=== PATIENT | male | born 1950 | race African-American/Black ===

== ENCOUNTER 2018-12-15 10:34 | Inpatient (IN) | payer OTHER ==
[~2018-12-15] VITALS: Ht 182.9 cm; Wt 86.2 kg
[2018-12-15 11:15] LABS: APPEARANCE,URINE SLIGHTLY CLOUDY; BILIRUBIN, URINE NEGATIVE (NEGATIVE); COLOR,URINE PALE YELLOW; GLUCOSE, URINE (UA) NEGATIVE (NEGATIVE); KETONES,URINE NEGATIVE (NEGATIVE); LEUKOCYTE ESTERASE ,URINE 3+ (NEGATIVE); NITRITE,URINE NEGATIVE (NEGATIVE); PH,URINE 6 (4.5-8.0); PROTEIN,URINE 3+ (NEGATIVE); UROBILINOGEN,URINE NORMAL MG/DL (0.0-1.0)
[2018-12-15 11:18] LABS: EOSINOPHILS % (AUTO) 1.8 % (0.0-3.0); HEMATOCRIT 35.5 % (42.0-52.0); HEMOGLOBIN 11.3 G/DL (14.2-18.0); LYMPHOCYTES % (AUTO) 11.2 % (20.0-45.0); MEAN CORPUSCULAR VOLUME 85 FL (80-99); MONOCYTES % (AUTO) 7.8 % (1.0-10.0); NEUTROPHILS % (AUTO) 78.1 % (45.0-75.0); PLATELET COUNT 375 K/UL (150-450); RED BLOOD COUNT 4.21 M/UL (4.70-6.10); RED CELL DISTRIBUTION WIDTH 15.5 % (11.6-14.8); WHITE BLOOD COUNT 11.4 K/UL (4.8-10.8)
[2018-12-15 11:26] LABS: ANION GAP 10 mmol/L (5-15); BLOOD UREA NITROGEN 15 mg/dL (7-18); CARBON DIOXIDE 27 MMOL/L (21-32); CHLORIDE 104 MMOL/L (98-107); CREATININE 1.3 MG/DL (0.55-1.30); POTASSIUM 3.2 MMOL/L (3.5-5.1); SODIUM 141 MMOL/L (136-145)
--- NOTE | 2018-12-15 11:30 | NUR ---
ED Nurse Note:pt. was BIBA from SNF with abd pain and rectal bleed, pt. is A/Ox4 , temp 100.8 rectal, he came with F/C, has small sacral decub, right BKA, blood blood cultures and urine was sent to labs, pt. placed on brazing machine setter, IV fluids given, will continue monitor
[2018-12-15 11:35] LABS: ALANINE AMINOTRANSFERASE 12 U/L (12-78); ALBUMIN 2.6 G/DL (3.4-5.0); ALBUMIN/GLOBULIN RATIO 0.5 (1.0-2.7); ALKALINE PHOSPHATASE 127 U/L (46-116); ASPARTATE AMINO TRANSFERASE 14 U/L (15-37); BILIRUBIN,TOTAL 0.4 MG/DL (0.2-1.0)
[2018-12-15] MEDS ORDERED: CATAPRES0.1 MG ORAL (11:35)
[2018-12-15] MEDS ORDERED: METOPROLOL TART50 M1 ORAL (11:35)
[2018-12-15] MEDS ORDERED: HUMALOG100 UNIT/4 SUBQ (11:35)
[2018-12-15] MEDS ORDERED: CENTRUM FLAVOR PO (11:35)
[2018-12-15] MEDS ORDERED: AMLODIPINE BESYL5 MG ORAL (11:35)
[2018-12-15] MEDS ORDERED: DIPHENHYDRAMINE25 M1 ORAL (11:35)
[2018-12-15] MEDS ORDERED: FERROUS SULFAT325 MG ORAL (11:35)
[2018-12-15 11:45] LABS: INR 1.1 (0.9-1.1)
[2018-12-15 11:46] VITALS: BP 178/67
[2018-12-15] MEDS ORDERED: Piperacillin/Tazobactam 4.5 GM in NS 110 ML IVPB ONE (12:00)
--- NOTE | 2018-12-15 12:11 | NUR ---
ED Nurse Note:pt. had CT abd done, given IV antibiotic
--- NOTE | 2018-12-15 12:38 | NUR ---
ED Nurse Note:F/C was changed per ER MD order
--- NOTE | 2018-12-15 12:59 | NUR ---
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
--- NOTE | 2018-12-15 13:00 | NUR ---
ED Nurse Note: discussed with ERMD regarding pt's elevated troponin, ERMD order 325mg asa via po received.
--- NOTE | 2018-12-15 13:06 | Emergency Room Report ---
History of Present Illness General Chief Complaint: Gastrointestinal Bleed Source: Medical Record Present Illness HPI Patient has a history of diabetes hypertension right BKA. [facility]. Patient was noted to have worsening symptoms of abdominal distention. Patient does have a history of constipation. Patient states that he has not had a bowel movement in more than a week. In addition patient has indwelling Trujillo. Patient was noted to be febrile here in our emergency department. When patient was evaluated today for possible enema by the prison where he was staying it was noted that he had some evidence of rectal bleeding. Therefore his prior further evaluation. Symptoms noted to be severe. Patient is compliant states that he feels uncomfortable in his abdomen because of the abdominal distention and the need to have a bowel movement. No other complaints are noted. Symptoms noted to be moderate to severe. No other modifying factors. No other associated signs and symptoms. No other complaints were noted. Allergies: Coded Allergies: No Known Allergies (Unverified , 12/15/18) Patient History Past Medical History: DM, HTN PMH Narrative Right BKA indwelling Trujillo Past Surgical History: other - Right BKA Social History: Denies: smoking, alcohol use, drug use Social History Narrative Staying at [facility] Reviewed Nursing Documentation: PMH: Agreed; PSxH: Agreed Nursing Documentation-PMH Past Medical History: No History, Except For Hx Diabetes: Yes - right leg below knee amputation Review of Systems All Other Systems: negative except mentioned in HPI Physical Exam Vital Signs Date Time Temp Pulse Resp B/P (MAP) Pulse Ox O2 Delivery O2 Flow Rate FiO2 12/15/18 10:29 98.8 80 16 180/80 (113) 98 Room Air Sp02 EP Interpretation: reviewed, normal General Appearance: alert, mild distress Head: atraumatic Eyes: bilateral eye normal inspection ENT: normal ENT inspection, hearing grossly normal, normal voice Neck: normal inspection, full range of motion, supple, no bony tend Respiratory: normal inspection, lungs clear, normal breath sounds, no respiratory distress, no retraction, no wheezing Cardiovascular #1: regular rate, rhythm, no edema Gastrointestinal: normal inspection, normal bowel sounds, non tender, soft, no guarding, no hernia Genitourinary: no CVA tenderness Musculoskeletal: back normal, other - Right BKA Neurologic: normal inspection, alert, responsive, speech normal Psychiatric: normal inspection, judgement/insight normal, mood/affect normal Skin: normal inspection, normal color, no rash Procedures Critical Care Time Critical Care Time Patient had a critical medical condition which untreated could potentially result in life or limb threatening injury. Total critical care time excluding procedures was approximately 45 minutes. Medical Decision Making Diagnostic Impression: Primary Impression: GI bleeding Additional Impressions: ACS (acute coronary syndrome) UTI (urinary tract infection) Sepsis Pneumonia ER Course Patient presents emergency department today with acute generalized weakness GI bleeding abdominal distention and fever. Differential diagnosis includes sepsis , GI bleeding, pneumonia, UTI just name a few. Given the severity of the patient's presentation I felt this is a highly complex patient. This patient required extensive workup. Patient's laboratory work-up does show slightly other white blood cell count. Urine is consistent with UTI. Therefore Trujillo was replaced. Blood cultures were obtained and patient was started on the sepsis protocol. Lactic acid level appear to be normal. Patient was given a fluid bolus and started on IV antibiotics broad-spectrum. This was started after blood cultures were obtained. Patient's x-ray shows questionable pneumonia versus atelectasis. Patient was given Zosyn which should treat any underlying pneumonia. Case was discussed with admitting physician. Patient will be admitted for the treatment. Patient also had an elevated troponin. Therefore patient was unstable for transfer and will be admitted to the AIDE. Labs Test 12/15/18 10:40 White Blood Count 11.4 K/UL (4.8-10.8) Red Blood Count 4.21 M/UL (4.70-6.10) Hemoglobin 11.3 G/DL (14.2-18.0) Hematocrit 35.5 % (42.0-52.0) Mean Corpuscular Volume 85 FL (80-99) Mean Corpuscular Hemoglobin 26.9 PG (27.0-31.0) Mean Corpuscular Hemoglobin Concent 31.8 G/DL (32.0-36.0) Red Cell Distribution Width 15.5 % (11.6-14.8) Platelet Count 375 K/UL (150-450) Mean Platelet Volume 6.1 FL (6.5-10.1) Neutrophils (%) (Auto) 78.1 % (45.0-75.0) Lymphocytes (%) (Auto) 11.2 % (20.0-45.0) Monocytes (%) (Auto) 7.8 % (1.0-10.0) Eosinophils (%) (Auto) 1.8 % (0.0-3.0) Basophils (%) (Auto) 1.0 % (0.0-2.0) Prothrombin Time 11.4 SEC (9.30-11.50) Prothromb Time International Ratio 1.1 (0.9-1.1) Activated Partial Thromboplast Time 31 SEC (23-33) Urine Color Pale yellow Urine Appearance Slightly cloudy Urine pH 6 (4.5-8.0) Urine Specific [place] 1.020 (1.005-1.035) Urine Protein 3+ (NEGATIVE) Urine Glucose (UA) Negative (NEGATIVE) Urine Ketones Negative (NEGATIVE) Urine Blood 4+ (NEGATIVE) Urine Nitrite Negative (NEGATIVE) Urine Bilirubin Negative (NEGATIVE) Urine Urobilinogen Normal MG/DL (0.0-1.0) Urine Leukocyte Esterase 3+ (NEGATIVE) Urine RBC 10-15 /HPF (0 - 0) Urine WBC 20-30 /HPF (0 - 0) Urine Squamous Epithelial Cells Occasional /LPF Urine Bacteria Moderate /HPF (NONE) Sodium Level 141 MMOL/L (136-145) Potassium Level 3.2 MMOL/L (3.5-5.1) Chloride Level 104 MMOL/L (98-107) Carbon Dioxide Level 27 MMOL/L (21-32) Anion Gap 10 mmol/L (5-15) Blood Urea Nitrogen 15 mg/dL (7-18) Creatinine 1.3 MG/DL (0.55-1.30) Estimat Glomerular Filtration Rate 54.6 mL/min (>60) Glucose Level 166 MG/DL (74-106) Lactic Acid Level 1.20 mmol/L (0.4-2.0) Calcium Level 9.0 MG/DL (8.5-10.1) Total Bilirubin 0.4 MG/DL (0.2-1.0) Aspartate Amino Transf (AST/SGOT) 14 U/L (15-37) Alanine Aminotransferase (ALT/SGPT) 12 U/L (12-78) Alkaline Phosphatase 127 U/L (46-116) Troponin I 1.223 ng/mL (0.000-0.056) Total Protein 8.2 G/DL (6.4-8.2) Albumin 2.6 G/DL (3.4-5.0) Globulin 5.6 g/dL Albumin/Globulin Ratio 0.5 (1.0-2.7) Lipase 70 U/L (73-393) EKG Diagnostic Results Rate: normal Rhythm: NSR ST Segments: no acute changes Rhythm Strip Diag. Results EP Interpretation: yes Rate: 80 Rhythm: NSR, no PVC's, no ectopy Chest X-Ray Diagnostic Results Chest X-Ray Diagnostic Results : Chest X-Ray Ordered: Yes # of Views/Limited/Complete: 1 View Indication: Shortness of Breath EP Interpretation: Yes Interpretation: other - Right pleural effusion versus consolidation. No evidence of fracture. Heart size normal. Impression: Other - Right pleural effusion versus infiltrate. Electronically Signed by: Electronically signed by Armando Hunt MD CT/MRI/US Diagnostic Results CT/MRI/US Diagnostic Results : Imaging Test Ordered: CTAbdomen pelvis: Proctitis, pyelonephritis, pulmonary atelectasis or infec Last Vital Signs Date Time Temp Pulse Resp B/P (MAP) Pulse Ox O2 Delivery O2 Flow Rate FiO2 12/15/18 11:50 100.8 12/15/18 11:46 80 16 Room Air 12/15/18 11:46 178/67 98 Status: improved Disposition: ADMITTED INPATIENT Condition: Critical Referrals: NON PHYSICIAN (PCP) Armando Hunt MD Dec 15, 2018 13:06
--- NOTE | 2018-12-15 13:25 | NUR ---
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 ALL SAFETY PRECAUTIONS IN PLACE. WILL CONT MONITOR.
--- NOTE | 2018-12-15 13:45 | NUR ---
ED Nurse Note: report given to JEANNE Islas and endorsed care, all safety precautions in place, pt on guitar technician, vss, resp even and unlabored on RA.
[2018-12-15 14:00] VITALS: BP 169/67
--- NOTE | 2018-12-15 14:00 | NUR ---
ED Nurse Note: Received patient from JEANNE Haines. Patient resting in pain. Reports no CP, SOB or dyspnea or N/V. Reports no facial grimacing or guarding noted. Reports no dizziness or drowsiness. Patient able to turn to left side and no rectal bleeding noted. Pillow support to LLE remained. Patient is on secured entrance monitor. SR with PVC noted. Bed in lowest position.
[2018-12-15] MEDS ORDERED: Vancomycin 1 GM in NS 275 ML IV ONE (14:15)
--- NOTE | 2018-12-15 14:34 | NUR ---
ED Nurse Note: Report no N/V, 'gas and gurling' in the abdomen. Dr. Hoover here at bedside.
--- NOTE | 2018-12-15 15:06 | History and Physical ---
History of Present Illness General Date patient seen: Dec 15, 2018 Time patient seen: 14:50 Reason for Hospitalization: Gastrointestinal Bleed Present Illness HPI 68 year old man with history of HTN, DM, right BKA, recent left hip fracture, stage II buttocks pressure ulcer, chronic Mckeon who comes from the detention with complaints of abdominal discomfort and gas. Patient states that he has not had a bowel movement in more than a week. When patient was evaluated today for possible enema by the detention it was noted that he had some evidence of rectal bleeding. Patient is compliant states that he feels uncomfortable in his abdomen because of the abdominal distention and the need to have a bowel movement. No discreet abdominal pain. No nausea, vomiting, chest pain, dyspnea, palpitations. In ED he was noted to have low grade fever of 100.8 with mild leukocytosis, left shift and pyuria. Also noted to have elevated troponin. CT A/P pending at the time of admission. Social Hx: Staying in detention ,no alcohol or tobacco Family Hx: No premature CAD Allergies: Coded Allergies: No Known Allergies (Unverified , 12/15/18) Medication History Scheduled Amlodipine Besylate* (Amlodipine Besylate*), 5 MG ORAL DAILY, (Reported) Clonidine Hcl* (Catapres*), 0.1 MG ORAL BID, (Reported) Ferrous Sulfate* (Ferrous Sulfate*), 325 MG ORAL DAILY, (Reported) Metoprolol Tartrate* (Metoprolol Tartrate*), 50 MG ORAL EVERY 12 HOURS, ( Reported) Multivit with Minerals No.55 (Centrum Flavor Burst Adult), 1 EACH PO DAILY, ( Reported) Scheduled PRN Diphenhydramine Hcl* (Diphenhydramine Hcl*), 25 MG ORAL Q4HR PRN for Itching, ( Reported) Miscellaneous Medications Insulin Lispro (Humalog), 0 SUBQ, (Reported) Patient History Healthcare decision maker Resuscitation status Advanced Directive on File Review of Systems Constitutional: Denies: chills, fever Eye: Denies: blurred vision Respiratory: Denies: cough, shortness of breath Cardiovascular: Denies: chest pain, edema, palpitations Gastrointestinal: Reports: constipation; Denies: abdominal pain, diarrhea, nausea, vomiting Musculoskeletal: Denies: back pain Skin: Denies: rash Neurological: Denies: headache Endocrine: Denies: excessive sweating Hematologic/Lymphatic: Denies: easy bleeding Physical Exam General Appearance: no apparent distress, alert HEENT: atraumatic, anicteric Neck: normal alignment, supple Respiratory/Chest: lungs clear, normal breath sounds, no respiratory distress Cardiovascular/Chest: normal rate, regular rhythm Abdomen: no mass, tender, other - Firm Last 24 Hour Vital Signs Date Time Temp Pulse Resp B/P (MAP) Pulse Ox O2 Delivery O2 Flow Rate FiO2 12/15/18 14:00 99.0 87 20 169/67 100 Room Air 12/15/18 11:50 100.8 12/15/18 11:46 80 16 Room Air 12/15/18 11:46 98.8 77 16 178/67 98 Room Air 12/15/18 10:29 98.8 80 16 180/80 (113) 98 Room Air Laboratory Tests Test 12/15/18 10:40 White Blood Count 11.4 K/UL (4.8-10.8) H Red Blood Count 4.21 M/UL (4.70-6.10) L Hemoglobin 11.3 G/DL (14.2-18.0) L Hematocrit 35.5 % (42.0-52.0) L Mean Corpuscular Volume 85 FL (80-99) Mean Corpuscular Hemoglobin 26.9 PG (27.0-31.0) L Mean Corpuscular Hemoglobin Concent 31.8 G/DL (32.0-36.0) L Red Cell Distribution Width 15.5 % (11.6-14.8) H Platelet Count 375 K/UL (150-450) Mean Platelet Volume 6.1 FL (6.5-10.1) L Neutrophils (%) (Auto) 78.1 % (45.0-75.0) H Lymphocytes (%) (Auto) 11.2 % (20.0-45.0) L Monocytes (%) (Auto) 7.8 % (1.0-10.0) Eosinophils (%) (Auto) 1.8 % (0.0-3.0) Basophils (%) (Auto) 1.0 % (0.0-2.0) Prothrombin Time 11.4 SEC (9.30-11.50) Prothromb Time International Ratio 1.1 (0.9-1.1) Activated Partial Thromboplast Time 31 SEC (23-33) Urine Color Pale yellow Urine Appearance Slightly cloudy Urine pH 6 (4.5-8.0) Urine Specific [place] 1.020 (1.005-1.035) Urine Protein 3+ (NEGATIVE) H Urine Glucose (UA) Negative (NEGATIVE) Urine Ketones Negative (NEGATIVE) Urine Blood 4+ (NEGATIVE) H Urine Nitrite Negative (NEGATIVE) Urine Bilirubin Negative (NEGATIVE) Urine Urobilinogen Normal MG/DL (0.0-1.0) Urine Leukocyte Esterase 3+ (NEGATIVE) H Urine RBC 10-15 /HPF (0 - 0) H Urine WBC 20-30 /HPF (0 - 0) H Urine Squamous Epithelial Cells Occasional /LPF Urine Bacteria Moderate /HPF (NONE) H Sodium Level 141 MMOL/L (136-145) Potassium Level 3.2 MMOL/L (3.5-5.1) L Chloride Level 104 MMOL/L (98-107) Carbon Dioxide Level 27 MMOL/L (21-32) Anion Gap 10 mmol/L (5-15) Blood Urea Nitrogen 15 mg/dL (7-18) Creatinine 1.3 MG/DL (0.55-1.30) Estimat Glomerular Filtration Rate 54.6 mL/min (>60) Glucose Level 166 MG/DL (74-106) H Lactic Acid Level 1.20 mmol/L (0.4-2.0) Calcium Level 9.0 MG/DL (8.5-10.1) Total Bilirubin 0.4 MG/DL (0.2-1.0) Aspartate Amino Transf (AST/SGOT) 14 U/L (15-37) L Alanine Aminotransferase (ALT/SGPT) 12 U/L (12-78) Alkaline Phosphatase 127 U/L (46-116) H Troponin I 1.223 ng/mL (0.000-0.056) Total Protein 8.2 G/DL (6.4-8.2) Albumin 2.6 G/DL (3.4-5.0) L Globulin 5.6 g/dL Albumin/Globulin Ratio 0.5 (1.0-2.7) L Lipase 70 U/L (73-393) L Height (Feet): 6 Weight (Pounds): 190 Medications Current Medications Medications (Trade) Dose Ordered Sig/Thelma Route PRN Reason Start Time Stop Time Status Last Admin Dose Admin Levofloxacin 150 ml @ 100 mls/hr NOW ONCE IVPB 12/15/18 14:15 12/15/18 15:44 12/15/18 14:24 Vancomycin HCl 1 gm/Sodium Chloride 275 ml @ 183.3 mls/ hr ONCE ONCE IV 12/15/18 14:15 12/15/18 15:45 Assessment/Plan Assessment/Plan: 68 year old man with HTN, DM, rigth BKA, stage 2 pressure ulcer, chronic indwelling mckeon who presents from detention with abdominal distension. Found to have fever, abdominal pain and rectal bleeding. Also with NSTEMI type 2 #Sepsis #UTI secondary to chronic Mckeon #Abdominal Pain #?rectal bleeding -admit to telemetry unit -NPO for now -IV hydration -IV Zosyn -follow up serial lactates -follow up abdominal CT results -GI eval -ID eval #Type II NSTEMI likely due to demand ischemia, no chest pain per patient #HTN -telemetry monitoring -check serial triops -ASA -Hold full dose anticoagulation for now due to possible GI bleed -Cardiology eval #Type 2 DM #Moderate protein calorie malnutrition #Stage II buttocks pressure ulcer -lispro SS -offloading, LWC -Wound care nurse eval Full Code Heparin SC I spent 70 minutes on this patient's case, and 35 minutes was dedicated to counseling and/or care coordination. I spent an additional 38 minutes on review of medical records including prior outside hospital records, consult notes, progress notes, procedures, imaging, labs, hemodynamics, and other clinical documentation. Blaine Basurto MD Dec 15, 2018 15:06
--- NOTE | 2018-12-15 15:15 | NUR ---
ED Nurse Note: Placed patient in hospital bed. Provided comfort measures. Supported extremites with pillow. Patient refused to be turned on left or right side at this time.
[2018-12-15] MEDS ORDERED: Albuterol/Ipratropium 3ml neb HHN PRN (15:30)
[2018-12-15] MEDS ORDERED: Hydromorphone 0.5mg/0.5ml inj IVP PRN (15:30)
[2018-12-15] MEDS ORDERED: HYDROmorphone 1mg/ml Carpuject IVP PRN (15:30)
[2018-12-15 16:03] VITALS: BP_SYST 158; BP_SYST 162; BP_DIAS 62; BP_DIAS 73
--- NOTE | 2018-12-15 16:39 | NUR ---
NURSE NOTES: Received telephone report from Michelle ANGEL.
--- NOTE | 2018-12-15 16:40 | NUR ---
ED Nurse Note: Patient was transferred to SDU accompanied by JEANNE Cervantes and WILDER Medina. Patient left with all his belongings.
--- NOTE | 2018-12-15 16:50 | NUR ---
NURSE NOTES: Pt. arrived at the unit.
[2018-12-15 17:00] VITALS: BP 155/75
--- NOTE | 2018-12-15 17:47 | Diagnostic Imaging Report ---
Indication: Reason For Exam: PAIN Technique: Spiral acquisitions obtained through the abdomen and pelvis. No oral contrast utilized, per emergency room physician request No IV contrast utilized, per referring physician request.. Multiplanar reconstructions were generated. Total dose length product 1073.71 mGycm. CTDIvol(s) 18.16 mGy. Dose reduction achieved using automated exposure control Comparison: None Findings: Lack of enteric contrast limits assessment of the GI tract. There is suggestion of mild wall thickening of the rectum and possibly the distal sigmoid. There is some presacral edema as well as some edema of the pelvic fat in general. No evidence of diverticulosis or diverticulitis. There is moderate retained fecal material. There is hepatic colonic interposition. The appendix is normal. The distal esophagus, stomach, duodenum are unremarkable. Lack of IV contrast limits assessment of solid organs. The gallbladder is nondistended. No gross focal liver abnormality. No biliary ductal dilatation. The pancreas is somewhat atrophic, otherwise unremarkable. The spleen demonstrates calcifications which are probably arterial. There is a 2 cm nodule coming off of the right adrenal which demonstrates attenuation of 7 Hounsfield units. There is considerable perinephric fat stranding on the right as well as fluid within Gerota's fascia. There is mild ectasia of the right ureter and periureteral fat stranding. However, no calculi are demonstrated. No hydronephrosis. There is mild perinephric fat stranding on the left. No focal renal abnormality demonstrated. The bladder is empty, contains a Trujillo catheter. There is mild wall thickening of the bladder. The prostate is enlarged. Surgical nails are seen in the left hip. There is a left hip fracture deformity, the degree of healing of which is uncertain. There is evidence of prior screw removal as well. There is generalized mild edema of the subcutaneous fat. There are degenerative changes of the lumbar spine. The included lung bases demonstrate atelectatic changes as well as bilateral groundglass opacities. Impression: Limited assessment of the GI tract, due to lack of enteric contrast Mild wall thickening of the rectum and possibly the distal sigmoid, could indicate proctitis Presacral edema, possibly related to the above Considerable right perinephric and periureteral fat stranding. This could be chronic, but could also indicate pyelonephritis/ureteritis. Correlate with clinical findings 2 cm right adrenal adenoma Empty bladder with Trujillo catheter. Mild wall thickening of the bladder, probably an artifact of under distention but the possibility of cystitis should be considered Evidence of prior left hip fracture and surgery. Degree of healing of the left fracture is indeterminate and plain film correlation should be considered Bilateral basilar pulmonary parenchymal atelectasis. Basilar groundglass opacities could be on the basis of atelectasis, edema, or infectious/inflammatory process The CT scanner at [facility] is accredited by the [place] [employer] and the scans are performed using protocols designed to limit radiation exposure to as low as reasonably achievable to attain images of sufficient resolution adequate for diagnostic evaluation.
--- NOTE | 2018-12-15 17:48 | Diagnostic Imaging Report ---
Indication: Cough Technique: One view of the chest Comparison: none Findings: There is atelectasis and possibly some consolidation at the right lung base. The heart is borderline enlarged with a left ventricular hypertrophy configuration. The left lung and bilateral pleural spaces are clear. Impression: Right basilar atelectasis and possible consolidation Other findings as noted
--- NOTE | 2018-12-15 19:05 | NUR ---
HAND-OFF: Report given to JEANNE Jensen. patient is AAO x4. Wound pic uploaded. Patient is in bed. No distress noted and patient denies pain.
--- NOTE | 2018-12-15 19:15 | NUR ---
NURSE NOTES: Report received from Js Sahni RN. Patient seen in bed in semi hamlin position. ALert, verbally responsive, able to make needs known. Denies any pain at this time. Noted with mckeon cath and is intact. IV site noted to right AC 18g , currentlly running 1/2NS @100cc/hr. Bed is in lowest position. Call light is within easy reach while in bed. Will continue to monitor.
[2018-12-15 20:00] VITALS: BP 160/90
[2018-12-15] MEDS: Docusate 100mg cap ORAL SCH (20:12)
[2018-12-15] MEDS: Metoprolol Tartrate 50mg tab ORAL SCH (20:13)
[2018-12-15] MEDS: NovoLOG Insulin Flexpen SUBQ SCH (20:14)
[2018-12-15] MEDS: Heparin 5000 units/ml inj SUBQ SCH (20:14)
[2018-12-15] MEDS: Piperacillin/Tazobactam 3.375 GM in NS 110 ML IVPB SCH (21:41)
--- NOTE | 2018-12-15 22:36 | Infectious Diseases Prog Note ---
Assessment/Plan Assessment/Plan Full consult to follow: uti sepsis fevers leukocytosis ? pna zosyn, vancomycin check cultures monitor labs f/u chest x-ray thank you Subjective Allergies: Coded Allergies: No Known Allergies (Unverified , 12/15/18) Objective Vital Signs Last 24 Hour Vital Signs Date Time Temp Pulse Resp B/P (MAP) Pulse Ox O2 Delivery O2 Flow Rate FiO2 12/15/18 20:13 90 160/88 12/15/18 20:00 98.4 90 18 160/90 (113) 98 12/15/18 20:00 Room Air 12/15/18 19:31 85 12/15/18 17:40 Nasal Cannula 2.0 12/15/18 17:10 80 12/15/18 17:00 98.9 77 20 155/75 (101) 98 12/15/18 16:40 76 22 164/63 99 Room Air 12/15/18 16:03 97.3 82 22 158/73 99 Room Air 12/15/18 16:00 2.0 12/15/18 16:00 Nasal Cannula 2.0 12/15/18 15:07 Nasal Cannula 2.0 12/15/18 14:00 99.0 87 20 169/67 100 Room Air 12/15/18 11:50 100.8 12/15/18 11:46 80 16 Room Air 12/15/18 11:46 98.8 77 16 178/67 98 Room Air 12/15/18 10:29 98.8 80 16 180/80 (113) 98 Room Air Height (Feet): 6 Height (Inches): 0.00 Weight (Pounds): 190 Laboratory Tests Test 12/15/18 10:40 12/15/18 18:00 White Blood Count 11.4 K/UL (4.8-10.8) H Red Blood Count 4.21 M/UL (4.70-6.10) L Hemoglobin 11.3 G/DL (14.2-18.0) L Hematocrit 35.5 % (42.0-52.0) L Mean Corpuscular Volume 85 FL (80-99) Mean Corpuscular Hemoglobin 26.9 PG (27.0-31.0) L Mean Corpuscular Hemoglobin Concent 31.8 G/DL (32.0-36.0) L Red Cell Distribution Width 15.5 % (11.6-14.8) H Platelet Count 375 K/UL (150-450) Mean Platelet Volume 6.1 FL (6.5-10.1) L Neutrophils (%) (Auto) 78.1 % (45.0-75.0) H Lymphocytes (%) (Auto) 11.2 % (20.0-45.0) L Monocytes (%) (Auto) 7.8 % (1.0-10.0) Eosinophils (%) (Auto) 1.8 % (0.0-3.0) Basophils (%) (Auto) 1.0 % (0.0-2.0) Prothrombin Time 11.4 SEC (9.30-11.50) Prothromb Time International Ratio 1.1 (0.9-1.1) Activated Partial Thromboplast Time 31 SEC (23-33) Urine Color Pale yellow Urine Appearance Slightly cloudy Urine pH 6 (4.5-8.0) Urine Specific [place] 1.020 (1.005-1.035) Urine Protein 3+ (NEGATIVE) H Urine Glucose (UA) Negative (NEGATIVE) Urine Ketones Negative (NEGATIVE) Urine Blood 4+ (NEGATIVE) H Urine Nitrite Negative (NEGATIVE) Urine Bilirubin Negative (NEGATIVE) Urine Urobilinogen Normal MG/DL (0.0-1.0) Urine Leukocyte Esterase 3+ (NEGATIVE) H Urine RBC 10-15 /HPF (0 - 0) H Urine WBC 20-30 /HPF (0 - 0) H Urine Squamous Epithelial Cells Occasional /LPF Urine Bacteria Moderate /HPF (NONE) H Sodium Level 141 MMOL/L (136-145) Potassium Level 3.2 MMOL/L (3.5-5.1) L Chloride Level 104 MMOL/L (98-107) Carbon Dioxide Level 27 MMOL/L (21-32) Anion Gap 10 mmol/L (5-15) Blood Urea Nitrogen 15 mg/dL (7-18) Creatinine 1.3 MG/DL (0.55-1.30) Estimat Glomerular Filtration Rate 54.6 mL/min (>60) Glucose Level 166 MG/DL (74-106) H Lactic Acid Level 1.20 mmol/L (0.4-2.0) 0.90 mmol/L (0.4-2.0) Calcium Level 9.0 MG/DL (8.5-10.1) Total Bilirubin 0.4 MG/DL (0.2-1.0) Aspartate Amino Transf (AST/SGOT) 14 U/L (15-37) L Alanine Aminotransferase (ALT/SGPT) 12 U/L (12-78) Alkaline Phosphatase 127 U/L (46-116) H Troponin I 1.223 ng/mL (0.000-0.056) 1.201 ng/mL (0.000-0.056) Total Protein 8.2 G/DL (6.4-8.2) Albumin 2.6 G/DL (3.4-5.0) L Globulin 5.6 g/dL Albumin/Globulin Ratio 0.5 (1.0-2.7) L Lipase 70 U/L (73-393) L Current Medications Medications (Trade) Dose Ordered Sig/Thelma Route PRN Reason Start Time Stop Time Status Last Admin Dose Admin Acetaminophen (Tylenol) 650 mg Q4H PRN ORAL Mild Pain (Pain Scale 1-3) 12/15/18 15:30 01/14/19 15:29 Albuterol/ Ipratropium (Albuterol/ Ipratropium) 3 ml Q6H PRN HHN Shortness of Breath 12/15/18 15:30 12/20/18 15:29 Amlodipine Besylate (Norvasc) 5 mg DAILY ORAL 12/16/18 09:00 01/15/19 08:59 Aspirin (ASA) 81 mg DAILY ORAL 12/16/18 09:00 01/15/19 08:59 Atorvastatin Calcium (Lipitor) 20 mg DAILY ORAL 12/16/18 09:00 01/15/19 08:59 Dextrose (Dextrose 50%) 25 ml Q30M PRN IV Hypoglycemia 12/15/18 15:30 01/14/19 15:29 Dextrose (Dextrose 50%) 50 ml Q30M PRN IV Hypoglycemia 12/15/18 15:30 01/14/19 15:29 Docusate Sodium (Colace) 100 mg EVERY 12 HOURS ORAL 12/15/18 21:00 01/14/19 20:59 12/15/18 20:12 Heparin Sodium (Porcine) (Heparin 5000 units/ml) 5,000 units EVERY 12 HOURS SUBQ 12/15/18 21:00 01/14/19 20:59 Hydromorphone HCl (Dilaudid) 0.5 mg Q4H PRN IVP Moderate Pain (Pain Scale 4-6) 12/15/18 15:30 12/22/18 15:29 Hydromorphone HCl (Dilaudid) 1 mg Q4H PRN IVP Severe Pain (Pain Scale 7-10) 12/15/18 15:30 12/22/18 15:29 Insulin Aspart (NovoLOG) BEFORE MEALS AND HS SUBQ 12/15/18 21:00 01/14/19 20:59 12/15/18 20:14 Metoprolol Tartrate (Lopressor) 50 mg EVERY 12 HOURS ORAL 12/15/18 21:00 01/14/19 20:59 12/15/18 20:13 Ondansetron HCl (Zofran) 4 mg Q6H PRN IVP Nausea & Vomiting 12/15/18 15:30 01/14/19 15:29 Piperacillin Sod/ Tazobactam Sod 3.375 gm/Sodium Chloride 110 ml @ 27.5 mls/hr Q8HR IVPB 12/15/18 22:00 12/22/18 21:59 12/15/18 21:41 Sodium Chloride 1,000 ml @ 100 mls/hr Q10H IV 12/15/18 18:00 01/14/19 17:59 12/15/18 18:24 Mabel Huertas MD Dec 15, 2018 22:36
[2018-12-16] VITALS: BP 146/73
[2018-12-16] MEDS: Vancomycin 1gm in D5W 275ml IVPB SCH ×2 (01:44→13:55)
--- NOTE | 2018-12-16 02:41 | NUR ---
NURSE NOTES: Report received from JEANNE Jensen. Observed pt lying on the bed, awake, denies any pain. A/O x4. On room air with no signs of distress. SR with nurse monitoring. F/C intact and draining well. IV on R AC 18G, running 1/2 NS @ 100cc/hr. Bed in the lowest position. Side rails up 2. Call light within reach. Will continue to monitor.
--- NOTE | 2018-12-16 03:12 | NUR ---
HAND-OFF: Report given to JEANNE Urbina.
[2018-12-16 04:00] VITALS: BP 160/77
[2018-12-16] MEDS: Piperacillin/Tazobactam 3.375 GM in NS 110 ML IVPB SCH ×3 (05:41→21:04)
[2018-12-16 05:42] LABS: BASOPHILS % (AUTO) 0.8 % (0.0-2.0); EOSINOPHILS % (AUTO) 3.1 % (0.0-3.0); HEMATOCRIT 32.9 % (42.0-52.0); HEMOGLOBIN 10.6 G/DL (14.2-18.0); LYMPHOCYTES % (AUTO) 14.5 % (20.0-45.0); MEAN CORPUSCULAR VOLUME 84 FL (80-99); MONOCYTES % (AUTO) 9.2 % (1.0-10.0); NEUTROPHILS % (AUTO) 72.5 % (45.0-75.0); PLATELET COUNT 331 K/UL (150-450); RED CELL DISTRIBUTION WIDTH 15.5 % (11.6-14.8); WHITE BLOOD COUNT 8.8 K/UL (4.8-10.8)
[2018-12-16] MEDS: NovoLOG Insulin Flexpen SUBQ SCH ×4 (05:43→21:05)
[2018-12-16 05:57] LABS: ANION GAP 8 mmol/L (5-15); BLOOD UREA NITROGEN 10 mg/dL (7-18); CALCIUM 8.8 MG/DL (8.5-10.1); CARBON DIOXIDE 28 MMOL/L (21-32); CHLORIDE 104 MMOL/L (98-107); CREATININE 1.1 MG/DL (0.55-1.30); POTASSIUM 3.3 MMOL/L (3.5-5.1); SODIUM 140 MMOL/L (136-145)
--- NOTE | 2018-12-16 07:21 | Consultation ---
History of Present Illness General Date patient seen: Dec 16, 2018 Time patient seen: 07:16 Chief Complaint: Gastrointestinal Bleed Present Illness HPI 68 year old man with history of HTN, DM, right BKA, recent left hip fracture, stage II buttocks pressure ulcer, chronic [place] [facility] the [facility] with complaints of abdominal discomfort .Cardiology consulted for elevated troponin. Currently no chest pain. Patient noted to have rectal bleeding and fever. Urine also noted to have pyuria. Blood pressure noted to be elevated. CXR with Right basilar atelectasis and possible consolidation. CT scan Mild wall thickening of the rectum and possibly the distal sigmoid, could indicate proctitis Allergies: Coded Allergies: No Known Allergies (Unverified , 12/15/18) Medication History Scheduled Amlodipine Besylate* (Amlodipine Besylate*), 5 MG ORAL DAILY, (Reported) Clonidine Hcl* (Catapres*), 0.1 MG ORAL BID, (Reported) Ferrous Sulfate* (Ferrous Sulfate*), 325 MG ORAL DAILY, (Reported) Metoprolol Tartrate* (Metoprolol Tartrate*), 50 MG ORAL EVERY 12 HOURS, ( Reported) Multivit with Minerals No.55 (Centrum Flavor Burst Adult), 1 EACH PO DAILY, ( Reported) Scheduled PRN Diphenhydramine Hcl* (Diphenhydramine Hcl*), 25 MG ORAL Q4HR PRN for Itching, ( Reported) Miscellaneous Medications Insulin Lispro (Humalog), 0 SUBQ, (Reported) Patient History Healthcare decision maker Resuscitation status Full Code Advanced Directive on File Yes Review of Systems Constitutional: Reports: no symptoms Eye: Reports: no symptoms ENT: Reports: no symptoms Respiratory: Reports: no symptoms Cardiovascular: Reports: no symptoms Gastrointestinal: Reports: abdominal pain, constipation Genitourinary: Reports: dysuria Musculoskeletal: Reports: no symptoms Skin: Reports: no symptoms Psychiatric: Reports: no symptoms Neurological: Reports: no symptoms Endocrine: Reports: no symptoms Hematologic/Lymphatic: Reports: no symptoms Physical Exam General Appearance: no apparent distress, alert Lines, tubes and drains: peripheral HEENT: normocephalic, atraumatic, anicteric, mucous membranes moist, PERRL Neck: non-tender, normal alignment, supple, normal inspection Respiratory/Chest: chest wall non-tender, lungs clear, normal breath sounds Cardiovascular/Chest: normal peripheral pulses, normal rate, regular rhythm Abdomen: normal bowel sounds, non tender, soft, no organomegaly, no mass Extremities: normal range of motion, non-tender, normal inspection Skin Exam: normal pigmentation, warm/dry 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, no motor/sensory deficits Last 24 Hour Vital Signs Date Time Temp Pulse Resp B/P (MAP) Pulse Ox O2 Delivery O2 Flow Rate FiO2 12/16/18 04:00 98.4 66 18 160/77 (104) 99 12/16/18 04:00 86 12/16/18 04:00 Room Air 12/16/18 00:19 62 12/16/18 00:00 98.8 67 18 146/73 (97) 96 12/16/18 00:00 Room Air 12/15/18 20:13 90 160/88 12/15/18 20:00 98.4 90 18 160/90 (113) 98 12/15/18 20:00 Room Air 12/15/18 19:31 85 12/15/18 17:40 Nasal Cannula 2.0 12/15/18 17:10 80 12/15/18 17:00 98.9 77 20 155/75 (101) 98 12/15/18 16:40 76 22 164/63 99 Room Air 12/15/18 16:03 97.3 82 22 158/73 99 Room Air 12/15/18 16:00 2.0 12/15/18 16:00 Nasal Cannula 2.0 12/15/18 15:07 Nasal Cannula 2.0 12/15/18 14:00 99.0 87 20 169/67 100 Room Air 12/15/18 11:50 100.8 12/15/18 11:46 80 16 Room Air 12/15/18 11:46 98.8 77 16 178/67 98 Room Air 12/15/18 10:29 98.8 80 16 180/80 (113) 98 Room Air Intake and Output 12/15/18 12/16/18 19:00 07:00 Intake Total 1320 ml 1210.0 ml Output Total 2900 ml 1700 ml Balance -1580 ml -490.0 ml Intake IV Total 1320 ml 1210.0 ml Output Urine Total 2900 ml 1700 ml Laboratory Tests Test 12/15/18 10:40 12/15/18 18:00 12/16/18 04:51 White Blood Count 11.4 K/UL (4.8-10.8) H 8.8 K/UL (4.8-10.8) Red Blood Count 4.21 M/UL (4.70-6.10) L 3.90 M/UL (4.70-6.10) L Hemoglobin 11.3 G/DL (14.2-18.0) L 10.6 G/DL (14.2-18.0) L Hematocrit 35.5 % (42.0-52.0) L 32.9 % (42.0-52.0) L Mean Corpuscular Volume 85 FL (80-99) 84 FL (80-99) Mean Corpuscular Hemoglobin 26.9 PG (27.0-31.0) L 27.2 PG (27.0-31.0) Mean Corpuscular Hemoglobin Concent 31.8 G/DL (32.0-36.0) L 32.4 G/DL (32.0-36.0) Red Cell Distribution Width 15.5 % (11.6-14.8) H 15.5 % (11.6-14.8) H Platelet Count 375 K/UL (150-450) 331 K/UL (150-450) Mean Platelet Volume 6.1 FL (6.5-10.1) L 6.6 FL (6.5-10.1) Neutrophils (%) (Auto) 78.1 % (45.0-75.0) H 72.5 % (45.0-75.0) Lymphocytes (%) (Auto) 11.2 % (20.0-45.0) L 14.5 % (20.0-45.0) L Monocytes (%) (Auto) 7.8 % (1.0-10.0) 9.2 % (1.0-10.0) Eosinophils (%) (Auto) 1.8 % (0.0-3.0) 3.1 % (0.0-3.0) H Basophils (%) (Auto) 1.0 % (0.0-2.0) 0.8 % (0.0-2.0) Prothrombin Time 11.4 SEC (9.30-11.50) Prothromb Time International Ratio 1.1 (0.9-1.1) Activated Partial Thromboplast Time 31 SEC (23-33) Urine Color Pale yellow Urine Appearance Slightly cloudy Urine pH 6 (4.5-8.0) Urine Specific [place] 1.020 (1.005-1.035) Urine Protein 3+ (NEGATIVE) H Urine Glucose (UA) Negative (NEGATIVE) Urine Ketones Negative (NEGATIVE) Urine Blood 4+ (NEGATIVE) H Urine Nitrite Negative (NEGATIVE) Urine Bilirubin Negative (NEGATIVE) Urine Urobilinogen Normal MG/DL (0.0-1.0) Urine Leukocyte Esterase 3+ (NEGATIVE) H Urine RBC 10-15 /HPF (0 - 0) H Urine WBC 20-30 /HPF (0 - 0) H Urine Squamous Epithelial Cells Occasional /LPF Urine Bacteria Moderate /HPF (NONE) H Sodium Level 141 MMOL/L (136-145) 140 MMOL/L (136-145) Potassium Level 3.2 MMOL/L (3.5-5.1) L 3.3 MMOL/L (3.5-5.1) L Chloride Level 104 MMOL/L (98-107) 104 MMOL/L (98-107) Carbon Dioxide Level 27 MMOL/L (21-32) 28 MMOL/L (21-32) Anion Gap 10 mmol/L (5-15) 8 mmol/L (5-15) Blood Urea Nitrogen 15 mg/dL (7-18) 10 mg/dL (7-18) Creatinine 1.3 MG/DL (0.55-1.30) 1.1 MG/DL (0.55-1.30) Estimat Glomerular Filtration Rate 54.6 mL/min (>60) > 60 mL/min (>60) Glucose Level 166 MG/DL (74-106) H 158 MG/DL (74-106) H Lactic Acid Level 1.20 mmol/L (0.4-2.0) 0.90 mmol/L (0.4-2.0) Calcium Level 9.0 MG/DL (8.5-10.1) 8.8 MG/DL (8.5-10.1) Total Bilirubin 0.4 MG/DL (0.2-1.0) Aspartate Amino Transf (AST/SGOT) 14 U/L (15-37) L Alanine Aminotransferase (ALT/SGPT) 12 U/L (12-78) Alkaline Phosphatase 127 U/L (46-116) H Troponin I 1.223 ng/mL (0.000-0.056) 1.201 ng/mL (0.000-0.056) Total Protein 8.2 G/DL (6.4-8.2) Albumin 2.6 G/DL (3.4-5.0) L Globulin 5.6 g/dL Albumin/Globulin Ratio 0.5 (1.0-2.7) L Lipase 70 U/L (73-393) L Height (Feet): 6 Height (Inches): 0.00 Weight (Pounds): 190 Medications Current Medications Medications (Trade) Dose Ordered Sig/Thelma Route PRN Reason Start Time Stop Time Status Last Admin Dose Admin Acetaminophen (Tylenol) 650 mg Q4H PRN ORAL Mild Pain (Pain Scale 1-3) 12/15/18 15:30 01/14/19 15:29 Albuterol/ Ipratropium (Albuterol/ Ipratropium) 3 ml Q6H PRN HHN Shortness of Breath 12/15/18 15:30 12/20/18 15:29 Amlodipine Besylate (Norvasc) 5 mg DAILY ORAL 12/16/18 09:00 01/15/19 08:59 Aspirin (ASA) 81 mg DAILY ORAL 12/16/18 09:00 01/15/19 08:59 Atorvastatin Calcium (Lipitor) 20 mg DAILY ORAL 12/16/18 09:00 01/15/19 08:59 Dextrose (Dextrose 50%) 25 ml Q30M PRN IV Hypoglycemia 12/15/18 15:30 01/14/19 15:29 Dextrose (Dextrose 50%) 50 ml Q30M PRN IV Hypoglycemia 12/15/18 15:30 01/14/19 15:29 Docusate Sodium (Colace) 100 mg EVERY 12 HOURS ORAL 12/15/18 21:00 01/14/19 20:59 12/15/18 20:12 Heparin Sodium (Porcine) (Heparin 5000 units/ml) 5,000 units EVERY 12 HOURS SUBQ 12/15/18 21:00 01/14/19 20:59 Hydromorphone HCl (Dilaudid) 0.5 mg Q4H PRN IVP Moderate Pain (Pain Scale 4-6) 12/15/18 15:30 12/22/18 15:29 Hydromorphone HCl (Dilaudid) 1 mg Q4H PRN IVP Severe Pain (Pain Scale 7-10) 12/15/18 15:30 12/22/18 15:29 Insulin Aspart (NovoLOG) BEFORE MEALS AND HS SUBQ 12/15/18 21:00 01/14/19 20:59 12/16/18 05:43 Metoprolol Tartrate (Lopressor) 50 mg EVERY 12 HOURS ORAL 12/15/18 21:00 01/14/19 20:59 12/15/18 20:13 Ondansetron HCl (Zofran) 4 mg Q6H PRN IVP Nausea & Vomiting 12/15/18 15:30 01/14/19 15:29 Piperacillin Sod/ Tazobactam Sod 3.375 gm/Sodium Chloride 110 ml @ 27.5 mls/hr Q8HR IVPB 12/15/18 22:00 12/22/18 21:59 12/16/18 05:41 Sodium Chloride 1,000 ml @ 100 mls/hr Q10H IV 12/15/18 18:00 01/14/19 17:59 12/16/18 03:57 Vancomycin HCl (Vanco rx to dose) 1 ea DAILY PRN MISC Per rx protocol 12/15/18 22:45 01/14/19 22:44 Vancomycin HCl 1 gm/Dextrose 275 ml @ 183.708 mls/hr Q12H IVPB 12/16/18 02:00 12/21/18 01:59 12/16/18 01:44 Assessment/Plan Assessment/Plan: Assessment: Hypertension DM Elevated Troponin UTI proctitis Plan: Elevated troponin -Continue to trend -Hold heparin -Aspirin -Nitro prn -Stress test next week -Echocardiogram to evaluate LV function Hypertension -Norvasc -Metoprolol DM -continue glucose control Proctitis/UTI -Cultures -Broad spectrum Abx Kaleb Boogie MD Dec 16, 2018 07:21
--- NOTE | 2018-12-16 07:23 | NUR ---
HAND-OFF: Report given to JEANNE Geronimo. No distress noted at this time.
--- NOTE | 2018-12-16 07:25 | NUR ---
NURSE NOTES: Report received from Carlitos Abrams RN.Pt awake,alert resting in bed ,noted no resp distress,denies any c/o abd pain but verbalized having a bloated stomach,pt NPO at this time,[place] cath draining yellow urine,IV site to RAC intact with IVF NS at 100ml/hr,skin warm and dry,SR up x2 HOB elevated,bed lock in lowest position,will continue with plans of care.
[2018-12-16 08:00] VITALS: BP 163/72
--- NOTE | 2018-12-16 08:25 | NUR ---
NURSE NOTES: Dr Mccrary at bedside,informed re pt's complain,discussed with pt re plans of care.
--- NOTE | 2018-12-16 08:39 | Diagnostic Imaging Report ---
EXAM: XR Chest, 1 View CLINICAL HISTORY: INFECT TECHNIQUE: Frontal view of the chest. COMPARISON: Chest x-ray dated 12/15/18 FINDINGS: Lungs: Decreased lung volumes, likely related to shallow inspiration. Mildly increased interstitial markings, unchanged. Pleural space: Unremarkable. The costophrenic angles are sharp. No visible pneumothorax. Heart: Unremarkable. No cardiomegaly. Mediastinum: Unremarkable. Bones/joints: Unremarkable. Vasculature: Atherosclerotic calcifications are noted within the aortic arch. Tubes, lines and devices: Telemetry leads overlie the thorax. IMPRESSION: No significant interval change compared to the prior chest x-ray.
[2018-12-16] MEDS: Atorvastatin 20mg tab ORAL SCH (09:31)
[2018-12-16] MEDS: Aspirin Baby 81mg ORAL SCH (09:31)
[2018-12-16] MEDS: Metoprolol Tartrate 50mg tab ORAL SCH ×2 (09:32→21:04)
[2018-12-16] MEDS: Docusate 100mg cap ORAL SCH ×2 (09:32→21:02)
[2018-12-16] MEDS: Heparin 5000 units/ml inj SUBQ SCH ×2 (09:36→21:05)
--- NOTE | 2018-12-16 10:00 | NUR ---
NURSE NOTES: Late breakfast tray clear liquid diet served,ate with good appetite ate 100%.from the tray.
--- NOTE | 2018-12-16 11:05 | Consultation ---
History of Present Illness General Date patient seen: Dec 16, 2018 Chief Complaint: Gastrointestinal Bleed Present Illness Allergies: Coded Allergies: No Known Allergies (Unverified , 12/15/18) Medication History Scheduled Amlodipine Besylate* (Amlodipine Besylate*), 5 MG ORAL DAILY, (Reported) Clonidine Hcl* (Catapres*), 0.1 MG ORAL BID, (Reported) Ferrous Sulfate* (Ferrous Sulfate*), 325 MG ORAL DAILY, (Reported) Metoprolol Tartrate* (Metoprolol Tartrate*), 50 MG ORAL EVERY 12 HOURS, ( Reported) Multivit with Minerals No.55 (Centrum Flavor Burst Adult), 1 EACH PO DAILY, ( Reported) Scheduled PRN Diphenhydramine Hcl* (Diphenhydramine Hcl*), 25 MG ORAL Q4HR PRN for Itching, ( Reported) Miscellaneous Medications Insulin Lispro (Humalog), 0 SUBQ, (Reported) Patient History Healthcare decision maker Resuscitation status Full Code Advanced Directive on File Yes Physical Exam Last 24 Hour Vital Signs Date Time Temp Pulse Resp B/P (MAP) Pulse Ox O2 Delivery O2 Flow Rate FiO2 12/16/18 10:22 97 18 98 Room Air 21 12/16/18 09:32 78 163/72 12/16/18 09:32 78 163/72 12/16/18 08:00 Room Air 12/16/18 08:00 98.9 78 26 163/72 (102) 98 12/16/18 08:00 67 12/16/18 04:00 98.4 66 18 160/77 (104) 99 12/16/18 04:00 86 12/16/18 04:00 Room Air 12/16/18 00:19 62 12/16/18 00:00 98.8 67 18 146/73 (97) 96 12/16/18 00:00 Room Air 12/15/18 20:13 90 160/88 12/15/18 20:00 98.4 90 18 160/90 (113) 98 12/15/18 20:00 Room Air 12/15/18 19:31 85 12/15/18 17:40 Nasal Cannula 2.0 12/15/18 17:10 80 12/15/18 17:00 98.9 77 20 155/75 (101) 98 12/15/18 16:40 76 22 164/63 99 Room Air 12/15/18 16:03 97.3 82 22 158/73 99 Room Air 12/15/18 16:00 2.0 12/15/18 16:00 Nasal Cannula 2.0 12/15/18 15:07 Nasal Cannula 2.0 12/15/18 14:00 99.0 87 20 169/67 100 Room Air 12/15/18 11:50 100.8 12/15/18 11:46 80 16 Room Air 12/15/18 11:46 98.8 77 16 178/67 98 Room Air Intake and Output 12/15/18 12/16/18 19:00 07:00 Intake Total 1320 ml 1310.0 ml Output Total 2900 ml 1700 ml Balance -1580 ml -390.0 ml Intake IV Total 1320 ml 1310.0 ml Output Urine Total 2900 ml 1700 ml Laboratory Tests Test 12/15/18 18:00 12/16/18 04:51 Lactic Acid Level 0.90 mmol/L (0.4-2.0) Troponin I 1.201 ng/mL (0.000-0.056) White Blood Count 8.8 K/UL (4.8-10.8) Red Blood Count 3.90 M/UL (4.70-6.10) L Hemoglobin 10.6 G/DL (14.2-18.0) L Hematocrit 32.9 % (42.0-52.0) L Mean Corpuscular Volume 84 FL (80-99) Mean Corpuscular Hemoglobin 27.2 PG (27.0-31.0) Mean Corpuscular Hemoglobin Concent 32.4 G/DL (32.0-36.0) Red Cell Distribution Width 15.5 % (11.6-14.8) H Platelet Count 331 K/UL (150-450) Mean Platelet Volume 6.6 FL (6.5-10.1) Neutrophils (%) (Auto) 72.5 % (45.0-75.0) Lymphocytes (%) (Auto) 14.5 % (20.0-45.0) L Monocytes (%) (Auto) 9.2 % (1.0-10.0) Eosinophils (%) (Auto) 3.1 % (0.0-3.0) H Basophils (%) (Auto) 0.8 % (0.0-2.0) Sodium Level 140 MMOL/L (136-145) Potassium Level 3.3 MMOL/L (3.5-5.1) L Chloride Level 104 MMOL/L (98-107) Carbon Dioxide Level 28 MMOL/L (21-32) Anion Gap 8 mmol/L (5-15) Blood Urea Nitrogen 10 mg/dL (7-18) Creatinine 1.1 MG/DL (0.55-1.30) Estimat Glomerular Filtration Rate > 60 mL/min (>60) Glucose Level 158 MG/DL (74-106) H Calcium Level 8.8 MG/DL (8.5-10.1) Height (Feet): 6 Height (Inches): 0.00 Weight (Pounds): 190 Medications Current Medications Medications (Trade) Dose Ordered Sig/Thelma Route PRN Reason Start Time Stop Time Status Last Admin Dose Admin Acetaminophen (Tylenol) 650 mg Q4H PRN ORAL Mild Pain (Pain Scale 1-3) 12/15/18 15:30 01/14/19 15:29 Albuterol/ Ipratropium (Albuterol/ Ipratropium) 3 ml Q6H PRN HHN Shortness of Breath 12/15/18 15:30 12/20/18 15:29 Amlodipine Besylate (Norvasc) 5 mg DAILY ORAL 12/16/18 09:00 01/15/19 08:59 12/16/18 09:32 Aspirin (ASA) 81 mg DAILY ORAL 12/16/18 09:00 01/15/19 08:59 12/16/18 09:31 Atorvastatin Calcium (Lipitor) 20 mg DAILY ORAL 12/16/18 09:00 01/15/19 08:59 12/16/18 09:31 Dextrose (Dextrose 50%) 25 ml Q30M PRN IV Hypoglycemia 12/15/18 15:30 01/14/19 15:29 Dextrose (Dextrose 50%) 50 ml Q30M PRN IV Hypoglycemia 12/15/18 15:30 01/14/19 15:29 Docusate Sodium (Colace) 100 mg EVERY 12 HOURS ORAL 12/15/18 21:00 01/14/19 20:59 12/16/18 09:32 Heparin Sodium (Porcine) (Heparin 5000 units/ml) 5,000 units EVERY 12 HOURS SUBQ 12/15/18 21:00 01/14/19 20:59 12/16/18 09:36 Hydromorphone HCl (Dilaudid) 0.5 mg Q4H PRN IVP Moderate Pain (Pain Scale 4-6) 12/15/18 15:30 12/22/18 15:29 Hydromorphone HCl (Dilaudid) 1 mg Q4H PRN IVP Severe Pain (Pain Scale 7-10) 12/15/18 15:30 12/22/18 15:29 Insulin Aspart (NovoLOG) BEFORE MEALS AND HS SUBQ 12/15/18 21:00 01/14/19 20:59 12/16/18 05:43 Metoprolol Tartrate (Lopressor) 50 mg EVERY 12 HOURS ORAL 12/15/18 21:00 01/14/19 20:59 12/16/18 09:32 Ondansetron HCl (Zofran) 4 mg Q6H PRN IVP Nausea & Vomiting 12/15/18 15:30 01/14/19 15:29 Piperacillin Sod/ Tazobactam Sod 3.375 gm/Sodium Chloride 110 ml @ 27.5 mls/hr Q8HR IVPB 12/15/18 22:00 12/22/18 21:59 12/16/18 05:41 Sodium Chloride 1,000 ml @ 100 mls/hr Q10H IV 12/15/18 18:00 01/14/19 17:59 12/16/18 03:57 Vancomycin HCl (Vanco rx to dose) 1 ea DAILY PRN MISC Per rx protocol 12/15/18 22:45 01/14/19 22:44 Vancomycin HCl 1 gm/Dextrose 275 ml @ 183.708 mls/hr Q12H IVPB 12/16/18 02:00 12/21/18 01:59 12/16/18 01:44 Assessment/Plan Assessment/Plan: HEMATOLOGY/ONCOLOGY CONSULTATION DATE OF CONSULT: 12/16/2018 REFERRING PHYSICIAN: Lelo Patterson REASON FOR CONSULT: Anemia HPI: 68 year old man with history of HTN, DM, right BKA, recent left hip fracture, stage II buttocks pressure ulcer, and chronic mckeon who comes from the long-term with complaints of abdominal discomfort and gas. Patient states that he has not had a bowel movement in more than a week. When patient was evaluated today for possible enema by the long-term it was noted that he had some evidence of rectal bleeding. Patient states that he feels uncomfortable in his abdomen because of the abdominal distention and the need to have a bowel movement. No discreet abdominal pain. No nausea, vomiting, chest pain, dyspnea, palpitations. In ED he was noted to have low grade fever of 100.8 with mild leukocytosis, left shift and pyuria. Also noted to have elevated troponin. CT A/P showed a 2 cm right adrenal adenoma. Hematology? Oncology services have been consulted for the evaluation of adrenal adenoma and anemia. PAST MEDICAL HISTORY: See HPI PAST SURGICAL HISTORY: Unknown SOCIAL HISTORY: Staying in long-term ,no alcohol or tobacco FAMILY HISTORY: Noncontributory Medication History Scheduled Amlodipine Besylate* (Amlodipine Besylate*), 5 MG ORAL DAILY, (Reported) Clonidine Hcl* (Catapres*), 0.1 MG ORAL BID, (Reported) Ferrous Sulfate* (Ferrous Sulfate*), 325 MG ORAL DAILY, (Reported) Metoprolol Tartrate* (Metoprolol Tartrate*), 50 MG ORAL EVERY 12 HOURS, ( Reported) Multivit with Minerals No.55 (Centrum Flavor Burst Adult), 1 EACH PO DAILY, ( Reported) Scheduled PRN Diphenhydramine Hcl* (Diphenhydramine Hcl*), 25 MG ORAL Q4HR PRN for Itching, ( Reported) Miscellaneous Medications Insulin Lispro (Humalog), 0 SUBQ, (Reported) Patient History Healthcare decision maker Resuscitation status Advanced Directive on File Review of Systems Constitutional: Denies: chills, fever Eye: Denies: blurred vision Respiratory: Denies: cough, shortness of breath Cardiovascular: Denies: chest pain, edema, palpitations Gastrointestinal: Reports: constipation; Denies: abdominal pain, diarrhea, nausea, vomiting Musculoskeletal: Denies: back pain Skin: Denies: rash Neurological: Denies: headache Endocrine: Denies: excessive sweating Hematologic/Lymphatic: Denies: easy bleeding Physical Exam General Appearance: no apparent distress, alert HEENT: atraumatic, anicteric Neck: normal alignment, supple Respiratory/Chest: lungs clear, normal breath sounds, no respiratory distress Cardiovascular/Chest: normal rate, regular rhythm Abdomen: no mass, tender, other - Firm IMAGIN/07: CT abd --> 2 cm right adrenal adenoma. Bilateral basilar pulmonary parenchymal atelectasis. Basilar groundglass opacities could be on the basis of atelectasis, edema, or infectious/inflammatory process LABS: wbc 8.8 hgb 10.6 plt 331 ASSESSMENT AND PLAN # Anemia of chronic disease (or of iron deficiency) due to underlying chronic medical issues, multifactorial --> Anemia workup has been ordered, rule out gi bleed --> No evidence of hemolysis is noted, peripheral smear has been reviewed. --> Hgb goal >7. Transfuse prn. --> Epogen or iron at this time is not particularly indicated --> Medications have been reviewed --> low threshold for gi evaluation in case has occult + --> bone marrow biopsy is not indicated given the other more likely causes # Sepsis w UTI secondary to chronic Mckeon. --> on abx, as per ID --> continue per ID recs # Abdominal Pain. --> CT abd: 2 cm right adrenal adenoma. Bilateral basilar pulmonary parenchymal atelectasis. Basilar groundglass opacities could be on the basis of atelectasis , edema, or infectious/inflammatory process # Rectal bleeding. GI is following, appreciate recs --> per gi prn #Type II NSTEMI likely due to demand ischemia, no chest pain per patient. --> telemetry monitoring --> check serial triops --> ASA --> Hold full dose anticoagulation for now due to possible GI bleed # Type 2 DM # Moderate protein calorie malnutrition # Stage II buttocks pressure ulcer --> Wound care The time note is entered does not reflect the time patient was examined. Greatly appreciate consultation. Fredy Thompson MD Dec 16, 2018 11:05
[2018-12-16 12:00] VITALS: BP 159/75
--- NOTE | 2018-12-16 13:00 | NUR ---
NURSE NOTES: Pt stable no c/o abd pain or active bleeding presented,stable.
--- NOTE | 2018-12-16 14:46 | Infectious Diseases Prog Note ---
Assessment/Plan Assessment/Plan Full consult to dictated: gram neg uti/pyelonephritis sepsis fevers leukocytosis ? pna zosyn, vancomycin check cultures monitor labs Subjective Constitutional: Denies: fever HEENT: Denies: congestion Respiratory: Reports: shortness of breath Cardiovascular: Denies: chest pain Gastrointestinal/Abdominal: Reports: vomiting; Denies: nausea, diarrhea Allergies: Coded Allergies: No Known Allergies (Unverified , 12/15/18) Objective Vital Signs Last 24 Hour Vital Signs Date Time Temp Pulse Resp B/P (MAP) Pulse Ox O2 Delivery O2 Flow Rate FiO2 12/16/18 12:00 Room Air 12/16/18 12:00 98.3 64 24 159/75 (103) 97 12/16/18 12:00 66 12/16/18 10:22 97 18 98 Room Air 21 12/16/18 09:32 78 163/72 12/16/18 09:32 78 163/72 12/16/18 08:00 Room Air 12/16/18 08:00 98.9 78 26 163/72 (102) 98 12/16/18 08:00 67 12/16/18 04:00 98.4 66 18 160/77 (104) 99 12/16/18 04:00 86 12/16/18 04:00 Room Air 12/16/18 00:19 62 12/16/18 00:00 98.8 67 18 146/73 (97) 96 12/16/18 00:00 Room Air 12/15/18 20:13 90 160/88 12/15/18 20:00 98.4 90 18 160/90 (113) 98 12/15/18 20:00 Room Air 12/15/18 19:31 85 12/15/18 17:40 Nasal Cannula 2.0 12/15/18 17:10 80 12/15/18 17:00 98.9 77 20 155/75 (101) 98 12/15/18 16:40 76 22 164/63 99 Room Air 12/15/18 16:03 97.3 82 22 158/73 99 Room Air 12/15/18 16:00 2.0 12/15/18 16:00 Nasal Cannula 2.0 12/15/18 15:07 Nasal Cannula 2.0 Height (Feet): 6 Height (Inches): 0.00 Weight (Pounds): 190 General Appearance: no acute distress HEENT: normocephalic, atraumatic, anicteric Respiratory/Chest: lungs clear, normal breath sounds, no accessory muscle use Cardiovascular: normal peripheral pulses, normal rate, regular rhythm, no gallop/murmur Abdomen: normal bowel sounds, soft, non tender, no organomegaly Microbiology Date/Time Source Procedure Growth Status 12/15/18 10:40 Urine,Clean Catch Urine Culture - Preliminary Gram Negative Daniel Resulted Laboratory Tests Test 12/15/18 18:00 12/16/18 04:51 Lactic Acid Level 0.90 mmol/L (0.4-2.0) Troponin I 1.201 ng/mL (0.000-0.056) White Blood Count 8.8 K/UL (4.8-10.8) Red Blood Count 3.90 M/UL (4.70-6.10) L Hemoglobin 10.6 G/DL (14.2-18.0) L Hematocrit 32.9 % (42.0-52.0) L Mean Corpuscular Volume 84 FL (80-99) Mean Corpuscular Hemoglobin 27.2 PG (27.0-31.0) Mean Corpuscular Hemoglobin Concent 32.4 G/DL (32.0-36.0) Red Cell Distribution Width 15.5 % (11.6-14.8) H Platelet Count 331 K/UL (150-450) Mean Platelet Volume 6.6 FL (6.5-10.1) Neutrophils (%) (Auto) 72.5 % (45.0-75.0) Lymphocytes (%) (Auto) 14.5 % (20.0-45.0) L Monocytes (%) (Auto) 9.2 % (1.0-10.0) Eosinophils (%) (Auto) 3.1 % (0.0-3.0) H Basophils (%) (Auto) 0.8 % (0.0-2.0) Reticulocyte Count Pending Sodium Level 140 MMOL/L (136-145) Potassium Level 3.3 MMOL/L (3.5-5.1) L Chloride Level 104 MMOL/L (98-107) Carbon Dioxide Level 28 MMOL/L (21-32) Anion Gap 8 mmol/L (5-15) Blood Urea Nitrogen 10 mg/dL (7-18) Creatinine 1.1 MG/DL (0.55-1.30) Estimat Glomerular Filtration Rate > 60 mL/min (>60) Glucose Level 158 MG/DL (74-106) H Calcium Level 8.8 MG/DL (8.5-10.1) Iron Level Pending Unsaturated Iron Binding Pending Ferritin Pending Vitamin B12 Level Pending Folate Pending Thyroid Stimulating Hormone (TSH) Pending Current Medications Medications (Trade) Dose Ordered Sig/Thelma Route PRN Reason Start Time Stop Time Status Last Admin Dose Admin Acetaminophen (Tylenol) 650 mg Q4H PRN ORAL Mild Pain (Pain Scale 1-3) 12/15/18 15:30 01/14/19 15:29 Albuterol/ Ipratropium (Albuterol/ Ipratropium) 3 ml Q6H PRN HHN Shortness of Breath 12/15/18 15:30 12/20/18 15:29 Amlodipine Besylate (Norvasc) 5 mg DAILY ORAL 12/16/18 09:00 01/15/19 08:59 12/16/18 09:32 Aspirin (ASA) 81 mg DAILY ORAL 12/16/18 09:00 01/15/19 08:59 12/16/18 09:31 Atorvastatin Calcium (Lipitor) 20 mg DAILY ORAL 12/16/18 09:00 01/15/19 08:59 12/16/18 09:31 Dextrose (Dextrose 50%) 25 ml Q30M PRN IV Hypoglycemia 12/15/18 15:30 01/14/19 15:29 Dextrose (Dextrose 50%) 50 ml Q30M PRN IV Hypoglycemia 12/15/18 15:30 01/14/19 15:29 Docusate Sodium (Colace) 100 mg EVERY 12 HOURS ORAL 12/15/18 21:00 01/14/19 20:59 12/16/18 09:32 Heparin Sodium (Porcine) (Heparin 5000 units/ml) 5,000 units EVERY 12 HOURS SUBQ 12/15/18 21:00 01/14/19 20:59 12/16/18 09:36 Hydromorphone HCl (Dilaudid) 0.5 mg Q4H PRN IVP Moderate Pain (Pain Scale 4-6) 12/15/18 15:30 12/22/18 15:29 Hydromorphone HCl (Dilaudid) 1 mg Q4H PRN IVP Severe Pain (Pain Scale 7-10) 12/15/18 15:30 12/22/18 15:29 Insulin Aspart (NovoLOG) BEFORE MEALS AND HS SUBQ 12/15/18 21:00 01/14/19 20:59 12/16/18 12:25 Metoprolol Tartrate (Lopressor) 50 mg EVERY 12 HOURS ORAL 12/15/18 21:00 01/14/19 20:59 12/16/18 09:32 Ondansetron HCl (Zofran) 4 mg Q6H PRN IVP Nausea & Vomiting 12/15/18 15:30 01/14/19 15:29 Piperacillin Sod/ Tazobactam Sod 3.375 gm/Sodium Chloride 110 ml @ 27.5 mls/hr Q8HR IVPB 12/15/18 22:00 12/22/18 21:59 12/16/18 13:55 Sodium Chloride 1,000 ml @ 100 mls/hr Q10H IV 12/15/18 18:00 01/14/19 17:59 12/16/18 03:57 Vancomycin HCl (Vanco rx to dose) 1 ea DAILY PRN MISC Per rx protocol 12/15/18 22:45 01/14/19 22:44 Vancomycin HCl 1 gm/Dextrose 275 ml @ 183.708 mls/hr Q12H IVPB 12/16/18 02:00 12/21/18 01:59 12/16/18 13:55 Mabel Huertas MD Dec 16, 2018 14:46
[2018-12-16 15:14] LABS: FERRITIN 107 NG/ML (8-388)
[2018-12-16 15:48] LABS: % IRON SATURATION 23 % (15-50); IRON 38 ug/dL (50-175); TOTAL IRON BINDING CAPACITY 167 ug/dL (250-450)
[2018-12-16 16:00] VITALS: BP 150/63
--- NOTE | 2018-12-16 16:11 | General Progress Note ---
Assessment/Plan Status: doing well, stable Assessment/Plan: 68 y M admitted from [facility] with: # UTI - Pyelonephritis -ID consultation noted and appreciated. - Vancomycin and Zosyn IV therapy, pending culture result. GNR growing - Indwelling [place] in place # GI bleed -CT with proctitis, no acute blood loss anemia note. -GI consulting. # Stage II buttock ulcer - Wound care follow up #Adrenal Adenoma - Heme-Onc consultation noted and appreciate. - Monitor # Generalized weakness - PT evaluation when stable # Disposition -SNF, resident at [facility] # FULL code #Hypokalemia - Replete and monitor Subjective Allergies: Coded Allergies: No Known Allergies (Unverified , 12/15/18) Objective Last 24 Hour Vital Signs Date Time Temp Pulse Resp B/P (MAP) Pulse Ox O2 Delivery O2 Flow Rate FiO2 12/16/18 12:00 Room Air 12/16/18 12:00 98.3 64 24 159/75 (103) 97 12/16/18 12:00 66 12/16/18 10:22 97 18 98 Room Air 21 12/16/18 09:32 78 163/72 12/16/18 09:32 78 163/72 12/16/18 08:00 Room Air 12/16/18 08:00 98.9 78 26 163/72 (102) 98 12/16/18 08:00 67 12/16/18 04:00 98.4 66 18 160/77 (104) 99 12/16/18 04:00 86 12/16/18 04:00 Room Air 12/16/18 00:19 62 12/16/18 00:00 98.8 67 18 146/73 (97) 96 12/16/18 00:00 Room Air 12/15/18 20:13 90 160/88 12/15/18 20:00 98.4 90 18 160/90 (113) 98 12/15/18 20:00 Room Air 12/15/18 19:31 85 12/15/18 17:40 Nasal Cannula 2.0 12/15/18 17:10 80 12/15/18 17:00 98.9 77 20 155/75 (101) 98 12/15/18 16:40 76 22 164/63 99 Room Air Intake and Output 12/15/18 12/16/18 18:59 06:59 Intake Total 1260 ml 1270.0 ml Output Total 2900 ml 1700 ml Balance -1640 ml -430.0 ml Intake IV Total 1260 ml 1270.0 ml Output Urine Total 2900 ml 1700 ml Laboratory Tests 12/15/18 18:00: Lactic Acid Level 0.90, Troponin I 1.201H 12/16/18 04:51: White Blood Count 8.8, Red Blood Count 3.90L, Hemoglobin 10.6L, Hematocrit 32.9L , Mean Corpuscular Volume 84, Mean Corpuscular Hemoglobin 27.2, Mean Corpuscular Hemoglobin Concent 32.4, Red Cell Distribution Width 15.5H, Platelet Count 331, Mean Platelet Volume 6.6, Neutrophils (%) (Auto) 72.5, Lymphocytes (%) (Auto) 14.5L, Monocytes (%) (Auto) 9.2, Eosinophils (%) (Auto) 3.1H, Basophils (%) (Auto) 0.8, Differential Total Cells Counted 100, Neutrophils % (Manual) 74, Lymphocytes % (Manual) 16L, Monocytes % (Manual) 7, Eosinophils % (Manual) 3, Basophils % (Manual) 0, Band Neutrophils 0, Platelet Estimate Adequate, Platelet Morphology Normal, Anisocytosis 1+, Reticulocyte Count 1.0, Sodium Level 140, Potassium Level 3.3L, Chloride Level 104, Carbon Dioxide Level 28, Anion Gap 8, Blood Urea Nitrogen 10, Creatinine 1.1, Estimat Glomerular Filtration Rate > 60, Glucose Level 158H, Calcium Level 8.8, Iron Level 38L, Total Iron Binding Capacity 167L, Percent Iron Saturation 23, Unsaturated Iron Binding 129, Ferritin 107, Vitamin B12 Level 1286H, Folate 34.4 , Thyroid Stimulating Hormone (TSH) 3.681 Height (Feet): 6 Height (Inches): 0.00 Weight (Pounds): 190 General Appearance: WD/WN, no apparent distress EENT: PERRL/EOMI Cardiovascular: normal rate Respiratory/Chest: lungs clear, normal breath sounds Genitourinary/Rectal: other - [place] Extremities: other - R BKA Neurologic: oriented x 3 Skin: normal pigmentation Bartolo Mccrary MD Dec 16, 2018 16:11
--- NOTE | 2018-12-16 17:07 | General Progress Note ---
Assessment/Plan Status: doing well, stable Assessment/Plan: GI CONSULT Dictated Thank you Katy Chambers MD Subjective Allergies: Coded Allergies: No Known Allergies (Unverified , 12/15/18) Objective Last 24 Hour Vital Signs Date Time Temp Pulse Resp B/P (MAP) Pulse Ox O2 Delivery O2 Flow Rate FiO2 12/16/18 16:00 99.1 68 22 150/63 (92) 97 12/16/18 16:00 68 12/16/18 16:00 Room Air 12/16/18 12:00 Room Air 12/16/18 12:00 98.3 64 24 159/75 (103) 97 12/16/18 12:00 66 12/16/18 10:22 97 18 98 Room Air 21 12/16/18 09:32 78 163/72 12/16/18 09:32 78 163/72 12/16/18 08:00 Room Air 12/16/18 08:00 98.9 78 26 163/72 (102) 98 12/16/18 08:00 67 12/16/18 04:00 98.4 66 18 160/77 (104) 99 12/16/18 04:00 86 12/16/18 04:00 Room Air 12/16/18 00:19 62 12/16/18 00:00 98.8 67 18 146/73 (97) 96 12/16/18 00:00 Room Air 12/15/18 20:13 90 160/88 12/15/18 20:00 98.4 90 18 160/90 (113) 98 12/15/18 20:00 Room Air 12/15/18 19:31 85 12/15/18 17:40 Nasal Cannula 2.0 12/15/18 17:10 80 Intake and Output 12/15/18 12/16/18 19:00 07:00 Intake Total 1320 ml 1310.0 ml Output Total 2900 ml 1700 ml Balance -1580 ml -390.0 ml Intake IV Total 1320 ml 1310.0 ml Output Urine Total 2900 ml 1700 ml Laboratory Tests 12/15/18 18:00: Lactic Acid Level 0.90, Troponin I 1.201H 12/16/18 04:51: White Blood Count 8.8, Red Blood Count 3.90L, Hemoglobin 10.6L, Hematocrit 32.9L , Mean Corpuscular Volume 84, Mean Corpuscular Hemoglobin 27.2, Mean Corpuscular Hemoglobin Concent 32.4, Red Cell Distribution Width 15.5H, Platelet Count 331, Mean Platelet Volume 6.6, Neutrophils (%) (Auto) 72.5, Lymphocytes (%) (Auto) 14.5L, Monocytes (%) (Auto) 9.2, Eosinophils (%) (Auto) 3.1H, Basophils (%) (Auto) 0.8, Differential Total Cells Counted 100, Neutrophils % (Manual) 74, Lymphocytes % (Manual) 16L, Monocytes % (Manual) 7, Eosinophils % (Manual) 3, Basophils % (Manual) 0, Band Neutrophils 0, Platelet Estimate Adequate, Platelet Morphology Normal, Anisocytosis 1+, Reticulocyte Count 1.0, Sodium Level 140, Potassium Level 3.3L, Chloride Level 104, Carbon Dioxide Level 28, Anion Gap 8, Blood Urea Nitrogen 10, Creatinine 1.1, Estimat Glomerular Filtration Rate > 60, Glucose Level 158H, Calcium Level 8.8, Iron Level 38L, Total Iron Binding Capacity 167L, Percent Iron Saturation 23, Unsaturated Iron Binding 129, Ferritin 107, Vitamin B12 Level 1286H, Folate 34.4 , Thyroid Stimulating Hormone (TSH) 3.681 Height (Feet): 6 Height (Inches): 0.00 Weight (Pounds): 190 Sulema Chambers MD Dec 16, 2018 17:07
[2018-12-16] MEDS ORDERED: 1/2 NS 1000ml IV ONE (17:33)
[2018-12-16] MEDS ORDERED: D5W 275ml ONE (17:33)
[2018-12-16] MEDS ORDERED: NS 275ml ONE ×2 (17:33→17:35)
[2018-12-16] MEDS ORDERED: D5NS 1000ml IV ONE (17:35)
[2018-12-16] MEDS ORDERED: Tubing IV Secondary IV ONE (17:35)
--- NOTE | 2018-12-16 19:09 | NUR ---
HAND-OFF: Report given to Camila Foster RN.
--- NOTE | 2018-12-16 19:10 | NUR ---
NURSE NOTES: Report received from Grazyna Lambert RN. Patient seen in bed in semi hamlin position. Alert, oriented, verbally responsive. Denies any pain at this time. Noted with mckeon cath and is intact. IV site noted to right AC 18g , Currently running 1/2NS @100cc/hr. Bed is in lowest position. Call light is within easy reach while in bed. Will continue to monitor.
[2018-12-16 20:00] VITALS: BP 148/76
--- NOTE | 2018-12-16 20:15 | Consultation ---
DATE OF CONSULTATION: 12/16/2018 INFECTIOUS DISEASE CONSULTATION CONSULTING PHYSICIAN: Mabel Huertas M.D. ATTENDING PHYSICIAN: Lelo Madden M.D. REFERRING PHYSICIAN: Dr. Dhillon REASON FOR CONSULTATION: Gram-negative UTI, pyelonephritis, sepsis, fevers, leukocytosis, possible community-acquired pneumonia. CHIEF COMPLAINT: The patient's chief complaint coming into the hospital is gastrointestinal bleed. HISTORY OF PRESENT ILLNESS: This is a 68-year-old male, comes to [facility]. The patient was noted to have a possible gastrointestinal bleed. The patient also had fevers and the patient has Gram-negative urinary tract infection/pyelonephritis with sepsis, fevers, and leukocytosis. Infectious Disease consultation was requested. The patient on chest x-ray has possible pneumonia. The patient is currently on vancomycin and Zosyn. MAR was noted. Orders noted. Notes were reviewed. REVIEW OF SYSTEMS: CONSTITUTIONAL: The patient has a Trujillo. He has generalized fatigue. No focal weakness. He did come in with fevers and chills, but currently does not have it. HEAD AND NECK: No head pain, neck pain. CARDIAC: No chest pain. GASTROINTESTINAL: No nausea, vomiting, or diarrhea. : No CVA tenderness. He has a Trujillo. PULMONARY: No congestion or shortness of breath. SKIN: No rash. EXTREMITIES: No extremity pain. NEUROLOGIC: No seizures. No headache, change in vision. PAST MEDICAL HISTORY: The patient's past medical history includes the following. The patient has a past medical history of right BKA, has a past medical history of diabetes, hypertension, history of hip fracture on the left, history of stage II buttocks decubitus ulcer, history of chronic Trujillo, right BKA, diabetes, hypertension, hip fracture. He did come in with what looks like rectal bleeding. ALLERGIES: No known drug allergies. FAMILY HISTORY: Noncontributory. SOCIAL HISTORY: Negative for smoking, alcohol, or drug use. MEDICATIONS: Upon reviewing the MAR, the patient is on the following medications. The patient is on vanco, Zosyn, Norvasc, aspirin, Lipitor, heparin, Colace, Lopressor, NovoLog insulin, albuterol treatments, acetaminophen, hydromorphone, Zofran, and ondansetron. Outside medications noted and reconciliated. PHYSICAL EXAMINATION: VITAL SIGNS: Temperature 98.3, pulse rate 64, respiratory rate 24, blood pressure 159/75, T-max is 100.8. Heart rate has been as high as . GENERAL: Alert, responsive, in no distress. HEAD AND NECK: Oral exam, no thrush. Eye exam, no icterus. Neck is supple. No JVD. Normocephalic. HEART: Regular. No obvious gallop or murmur. ABDOMEN: Soft. Positive bowel sounds. Nontender. LUNGS: Clear bilaterally. No rhonchi or rales. SKIN: No rash. MUSCULOSKELETAL: Right BKA. Left leg without cellulitis. No gangrene. GENITOURINARY: He has a Trujillo. Urine is cloudy. LINES: Line sites without phlebitis. NEUROLOGIC: Intact and nonfocal. LABORATORY AND DIAGNOSTIC DATA: White count 8.8, hemoglobin 10.6. White count as high as 11.4, now white count 8.8 and hemoglobin 10.6. Creatinine 1.1. UA, 3+ leukocyte esterase, 20 white blood cells, moderate bacteria. Urine culture greater than 100,000 Gram-negative rods. Chest x-ray shows bibasilar atelectasis versus infiltrate is noted and reviewed. ASSESSMENT AND PLAN: 1. The patient has Gram-negative urinary tract infection/pyelonephritis with fevers. The patient has a chronic Trujillo. At this time, we will continue with Zosyn. Also, the patient with possible pneumonia versus atelectasis. The patient has sepsis, fevers, leukocytosis. Continue vancomycin and Zosyn for MRSA Gram-negative urinary tract infection, pyelonephritis, sepsis, pneumonia, fevers, leukocytosis. Check cultures, laboratories, and chest x-ray. 2. Chronic Trujillo. 3. Anemia. 4. Diabetes. 5. Hypertension. 6. Blood sugar and blood pressure treatment per primary. 7. Right BKA. 8. Left hip fracture. 9. Skin care protocol. History of stage II buttocks decubitus. 10. Continue treatment per primary consultants. 11. No allergies. 12. Social history is negative. 13. Family history is noncontributory. 14. MAR was noted. 15. Case was discussed with RN. Mabel Huertas M.D. DR: KALIE JOB#: [id number] CC: HARMONY
[2018-12-17] VITALS: BP 153/68
[2018-12-17 03:07] LABS: BASOPHILS % (AUTO) 0.9 % (0.0-2.0); EOSINOPHILS % (AUTO) 4.2 % (0.0-3.0); HEMATOCRIT 32.3 % (42.0-52.0); HEMOGLOBIN 10.5 G/DL (14.2-18.0); LYMPHOCYTES % (AUTO) 20.4 % (20.0-45.0); MEAN CORPUSCULAR VOLUME 83 FL (80-99); MONOCYTES % (AUTO) 12.1 % (1.0-10.0); NEUTROPHILS % (AUTO) 62.5 % (45.0-75.0); PLATELET COUNT 322 K/UL (150-450); RED BLOOD COUNT 3.88 M/UL (4.70-6.10); RED CELL DISTRIBUTION WIDTH 15.1 % (11.6-14.8); WHITE BLOOD COUNT 8.7 K/UL (4.8-10.8)
[2018-12-17 03:11] LABS: ANION GAP 6 mmol/L (5-15); BLOOD UREA NITROGEN 7 mg/dL (7-18); CALCIUM 8.6 MG/DL (8.5-10.1); CARBON DIOXIDE 30 MMOL/L (21-32); CHLORIDE 104 MMOL/L (98-107); CREATININE 1.2 MG/DL (0.55-1.30); POTASSIUM 3.2 MMOL/L (3.5-5.1); SODIUM 140 MMOL/L (136-145)
--- NOTE | 2018-12-17 03:24 | NUR ---
NURSE NOTES: Received vanco trough. spoke to pipeline. dose will be adjusted. currently awaiting for new order
[2018-12-17] MEDS: Vancomycin 1.25gm Premix IVPB SCH ×2 (03:36→14:30)
--- NOTE | 2018-12-17 03:45 | Consultation ---
DATE OF CONSULTATION: 12/16/2018 GASTROENTEROLOGY CONSULTATION CONSULTING PHYSICIAN: Sulema Chambers M.D. CHIEF COMPLAINT: I was asked to see this patient by Dr. Patterson for evaluation of abdominal issues. HISTORY OF PRESENT ILLNESS: The patient is a 68-year-old man, who was brought in due to reported hematochezia, although the patient states he did not see himself. The patient has some bloating abdominal pain for about one day. He had regular endoscopy and colonoscopy in the past, although he does not recall when it was done. He had a recent left hip fracture and surgery. PAST MEDICAL HISTORY: History of hypertension, history of diabetes, history of right [id number] amputation, peripheral vascular disease, history of recent hip fracture, status post left hip surgery, and history of decubitus ulceration. FAMILY HISTORY: Noncontributory. SOCIAL HISTORY: The patient is from a retirement and has had no recent history of smoking or drinking. REVIEW OF SYSTEMS: Otherwise negative. PHYSICAL EXAMINATION: GENERAL: Debilitated man, seen in his room. HEENT: Normocephalic and atraumatic. Sclerae are anicteric. Oropharynx is clear. NECK: Supple. CHEST: Clear to auscultation. CARDIOVASCULAR: Regular rhythm and rate. ABDOMEN: Soft. EXTREMITIES: No edema. LABORATORY DATA: Noted. ASSESSMENT: This patient presents with reported hematochezia from a retirement, although this seems to be fairly documented. For the time being, the patient has an elevated troponin, going to be seen and cleared by Cardiology. Once that is completed, then the patient will be considered for endoscopy, colonoscopy to evaluate the GI tract. RECOMMENDATIONS: 1. Cardiology consultation. 2. Follow up CBC. 3. Check stool occult blood. 4. Endoscopy and colonoscopy once cleared from a cardiac standpoint. Sulema hCambers M.D. DR: KAMILA JOB#: [id number] CC:
[2018-12-17 04:00] VITALS: BP 157/73
[2018-12-17] MEDS: NovoLOG Insulin Flexpen SUBQ SCH ×4 (06:00→20:42)
[2018-12-17] MEDS: Piperacillin/Tazobactam 3.375 GM in NS 110 ML IVPB SCH ×3 (06:00→21:39)
--- NOTE | 2018-12-17 06:03 | NUR ---
NURSE NOTES: paged dr craft re:Quiana (3.2). awaiting for call back Addendum: 12/17/18 at 0605 by Oswaldo Foster RN NURSE NOTES: paged dr rivas re:Quiana (3.2). awaiting for call back
--- NOTE | 2018-12-17 07:28 | NUR ---
HAND-OFF: Report given to Venus silva RN .
[2018-12-17 08:00] VITALS: BP 146/85
--- NOTE | 2018-12-17 08:00 | NUR ---
NURSE NOTES: received patient in bed not in any respiratory distress, denies any pain and discomfort. Complete bath provided. Noted with sacral skin irritation healed applied optifoam dressing for protection. Iv heplock on right ac intact and patent but no date time it was changed. Changed dressing and put a new hub and dated. Noted with mckeon cath per patient he cant urinate on his own and they do in and out cath 3 times a day. Mckeon cath is imperative.
[2018-12-17] MEDS: Aspirin Baby 81mg ORAL SCH (08:32)
[2018-12-17] MEDS: Docusate 100mg cap ORAL SCH ×2 (08:32→20:41)
[2018-12-17] MEDS: Atorvastatin 20mg tab ORAL SCH (08:32)
[2018-12-17] MEDS: Metoprolol Tartrate 50mg tab ORAL SCH ×2 (08:33→20:41)
[2018-12-17] MEDS: Heparin 5000 units/ml inj SUBQ SCH ×2 (08:35→20:42)
--- NOTE | 2018-12-17 09:00 | NUR ---
NURSE NOTES: Given instructions on the side effects of the medications.
--- NOTE | 2018-12-17 09:33 | Cardiology Progress Note ---
Assessment/Plan Status: stable Assessment/Plan Assessment/Plan Assessment/Plan: Assessment: Hypertension DM Elevated Troponin UTI proctitis Plan: Elevated troponin -Continue to trend -Hold heparin -Aspirin -Nitro prn -Stress test next week -Echocardiogram to evaluate LV function Hypertension -Norvasc -Metoprolol DM -continue glucose control Proctitis/UTI -Cultures -Broad spectrum Abx Subjective Cardiovascular: Reports: no symptoms Respiratory: Reports: no symptoms Gastrointestinal/Abdominal: Reports: no symptoms Genitourinary: Reports: no symptoms Subjective No acute events, no fevers, no chest pain Objective Last 24 Hour Vital Signs Date Time Temp Pulse Resp B/P (MAP) Pulse Ox O2 Delivery O2 Flow Rate FiO2 12/17/18 08:33 84 144/75 12/17/18 08:33 84 144/75 12/17/18 08:00 98.2 77 21 146/85 (105) 99 12/17/18 04:00 99.3 84 20 157/73 (101) 97 12/17/18 04:00 Room Air 12/17/18 03:42 70 12/17/18 00:00 98.7 59 20 153/68 (96) 98 12/17/18 00:00 62 12/17/18 00:00 Room Air 12/16/18 22:02 66 18 98 Room Air 21 12/16/18 21:04 66 148/76 12/16/18 20:00 98.7 66 21 148/76 (100) 98 12/16/18 20:00 Room Air 12/16/18 19:31 66 12/16/18 16:00 99.1 68 22 150/63 (92) 97 12/16/18 16:00 68 12/16/18 16:00 Room Air 12/16/18 12:00 Room Air 12/16/18 12:00 98.3 64 24 159/75 (103) 97 12/16/18 12:00 66 12/16/18 10:22 97 18 98 Room Air 21 General Appearance: no apparent distress, alert EENT: PERRL/EOMI, normal ENT inspection, TMs normal, pharynx normal Neck: non-tender, normal alignment, supple, normal inspection, no JVD Rhythm: NSR Cardiovascular: normal peripheral pulses, normal rate Respiratory/Chest: chest wall non-tender, lungs clear, normal breath sounds, no respiratory distress Abdomen: normal bowel sounds, non tender, soft, no organomegaly Extremities: normal range of motion, non-tender, normal inspection 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, no motor/sensory deficits Intake and Output 12/16/18 12/17/18 18:59 06:59 Intake Total 1805.000 ml 1408.3333 ml Output Total 2500 ml 3650 ml Balance -695.000 ml -2241.6667 ml Intake Oral 720 ml 360 ml IV Total 1085.000 ml 1048.3333 ml Output Urine Total 2500 ml 3650 ml # Bowel Movements 1 Laboratory Tests Test 12/17/18 02:45 White Blood Count 8.7 K/UL (4.8-10.8) Red Blood Count 3.88 M/UL (4.70-6.10) L Hemoglobin 10.5 G/DL (14.2-18.0) L Hematocrit 32.3 % (42.0-52.0) L Mean Corpuscular Volume 83 FL (80-99) Mean Corpuscular Hemoglobin 27.0 PG (27.0-31.0) Mean Corpuscular Hemoglobin Concent 32.4 G/DL (32.0-36.0) Red Cell Distribution Width 15.1 % (11.6-14.8) H Platelet Count 322 K/UL (150-450) Mean Platelet Volume 5.5 FL (6.5-10.1) L Neutrophils (%) (Auto) 62.5 % (45.0-75.0) Lymphocytes (%) (Auto) 20.4 % (20.0-45.0) Monocytes (%) (Auto) 12.1 % (1.0-10.0) H Eosinophils (%) (Auto) 4.2 % (0.0-3.0) H Basophils (%) (Auto) 0.9 % (0.0-2.0) Sodium Level 140 MMOL/L (136-145) Potassium Level 3.2 MMOL/L (3.5-5.1) L Chloride Level 104 MMOL/L (98-107) Carbon Dioxide Level 30 MMOL/L (21-32) Anion Gap 6 mmol/L (5-15) Blood Urea Nitrogen 7 mg/dL (7-18) Creatinine 1.2 MG/DL (0.55-1.30) Estimat Glomerular Filtration Rate > 60 mL/min (>60) Glucose Level 116 MG/DL (74-106) H Calcium Level 8.6 MG/DL (8.5-10.1) Vancomycin Level Trough 13.3 ug/mL (5.0-12.0) H Microbiology Date/Time Source Procedure Growth Status 12/15/18 10:40 Blood Blood Culture - Preliminary NO GROWTH AFTER 24 HOURS Resulted 12/15/18 10:25 Blood Blood Culture - Preliminary NO GROWTH AFTER 24 HOURS Resulted 12/15/18 13:00 Nasal Nares MRSA Culture - Final Staphylococcus Aureus - Mrsa Complete 12/15/18 23:13 Indwelling Cath Urine Culture - Preliminary NO GROWTH Resulted 12/15/18 10:40 Urine,Clean Catch Urine Culture - Final Enterobacter Cloacae Complex Complete 12/15/18 13:00 Rectum - Final NO CARBAPENEM-RESISTANT ENTEROBACTERI... Complete 12/15/18 13:00 Rectum VRE Culture - Final Enterococcus Faecalis - Vre Complete Kaleb Boogie MD Dec 17, 2018 09:33
--- NOTE | 2018-12-17 11:23 | General Progress Note ---
Assessment/Plan Status: stable Assessment/Plan: Assessment: Rectal bleeding bloating anemia recent hip fracture Hypertension DM Elevated Troponin Recommendations Advance diet monitor H&H Cardiology w/u and clearance no GI w/u planned at this time Subjective Allergies: Coded Allergies: No Known Allergies (Unverified , 12/15/18) Subjective Feels better no bleeding wants to advance diet cardiology w/u in progress Objective Last 24 Hour Vital Signs Date Time Temp Pulse Resp B/P (MAP) Pulse Ox O2 Delivery O2 Flow Rate FiO2 12/17/18 08:33 84 144/75 12/17/18 08:33 84 144/75 12/17/18 08:00 98.2 77 21 146/85 (105) 99 12/17/18 08:00 73 12/17/18 08:00 Room Air 12/17/18 04:00 99.3 84 20 157/73 (101) 97 12/17/18 04:00 Room Air 12/17/18 03:42 70 12/17/18 00:00 98.7 59 20 153/68 (96) 98 12/17/18 00:00 62 12/17/18 00:00 Room Air 12/16/18 22:02 66 18 98 Room Air 21 12/16/18 21:04 66 148/76 12/16/18 20:00 98.7 66 21 148/76 (100) 98 12/16/18 20:00 Room Air 12/16/18 19:31 66 12/16/18 16:00 99.1 68 22 150/63 (92) 97 12/16/18 16:00 68 12/16/18 16:00 Room Air 12/16/18 12:00 Room Air 12/16/18 12:00 98.3 64 24 159/75 (103) 97 12/16/18 12:00 66 Intake and Output 12/16/18 12/17/18 19:00 07:00 Intake Total 1705.000 ml 1508.3333 ml Output Total 2500 ml 3650 ml Balance -795.000 ml -2141.6667 ml Intake Oral 720 ml 360 ml IV Total 985.000 ml 1148.3333 ml Output Urine Total 2500 ml 3650 ml # Bowel Movements 1 Laboratory Tests 12/17/18 02:45: White Blood Count 8.7, Red Blood Count 3.88L, Hemoglobin 10.5L, Hematocrit 32.3L , Mean Corpuscular Volume 83, Mean Corpuscular Hemoglobin 27.0, Mean Corpuscular Hemoglobin Concent 32.4, Red Cell Distribution Width 15.1H, Platelet Count 322, Mean Platelet Volume 5.5L, Neutrophils (%) (Auto) 62.5, Lymphocytes (%) (Auto) 20.4, Monocytes (%) (Auto) 12.1H, Eosinophils (%) (Auto) 4.2H, Basophils (%) (Auto) 0.9, Sodium Level 140, Potassium Level 3.2L, Chloride Level 104, Carbon Dioxide Level 30, Anion Gap 6, Blood Urea Nitrogen 7 , Creatinine 1.2, Estimat Glomerular Filtration Rate > 60, Glucose Level 116H, Calcium Level 8.6, Vancomycin Level Trough 13.3H Height (Feet): 6 Height (Inches): 0.00 Weight (Pounds): 190 Objective WDWN NCAT supple CTA RRR abd soft ND no edema Sulema Chambers MD Dec 17, 2018 11:23
--- NOTE | 2018-12-17 11:50 | General Progress Note ---
Assessment/Plan Status: stable Assessment/Plan: 68 y M admitted from [facility] with: # UTI - Pyelonephritis -ID consultation noted and appreciated. - Vancomycin and Zosyn IV therapy, Urine culture with Enterobacter noted and S to ceftriaxone, quinolones. AWAIT ID input and final therapy or downgrading antibiotics. Second urine culture noted later on 12/15 with NGT - Indwelling Trujillo in place # GI bleed -CT with proctitis, no acute blood loss anemia note. -GI consulting. No procedures planned. # NSTEMI - Cardiology following and plans for stress test this week. # Stage II buttock ulcer - Wound care follow up #Adrenal Adenoma - Heme-Onc consultation noted and appreciate. - Monitor # Generalized weakness - PT evaluation when stable # Disposition -SNF, resident at [facility] # FULL code #Hypokalemia - Replete and monitor as needed. Subjective ROS Limited/Unobtainable: Yes Allergies: Coded Allergies: No Known Allergies (Unverified , 12/15/18) Objective Last 24 Hour Vital Signs Date Time Temp Pulse Resp B/P (MAP) Pulse Ox O2 Delivery O2 Flow Rate FiO2 12/17/18 08:33 84 144/75 12/17/18 08:33 84 144/75 12/17/18 08:00 98.2 77 21 146/85 (105) 99 12/17/18 08:00 73 12/17/18 08:00 Room Air 12/17/18 04:00 99.3 84 20 157/73 (101) 97 12/17/18 04:00 Room Air 12/17/18 03:42 70 12/17/18 00:00 98.7 59 20 153/68 (96) 98 12/17/18 00:00 62 12/17/18 00:00 Room Air 12/16/18 22:02 66 18 98 Room Air 21 12/16/18 21:04 66 148/76 12/16/18 20:00 98.7 66 21 148/76 (100) 98 12/16/18 20:00 Room Air 12/16/18 19:31 66 12/16/18 16:00 99.1 68 22 150/63 (92) 97 12/16/18 16:00 68 12/16/18 16:00 Room Air 12/16/18 12:00 Room Air 12/16/18 12:00 98.3 64 24 159/75 (103) 97 12/16/18 12:00 66 Intake and Output 12/16/18 12/17/18 19:00 07:00 Intake Total 1705.000 ml 1508.3333 ml Output Total 2500 ml 3650 ml Balance -795.000 ml -2141.6667 ml Intake Oral 720 ml 360 ml IV Total 985.000 ml 1148.3333 ml Output Urine Total 2500 ml 3650 ml # Bowel Movements 1 Laboratory Tests 12/17/18 02:45: White Blood Count 8.7, Red Blood Count 3.88L, Hemoglobin 10.5L, Hematocrit 32.3L , Mean Corpuscular Volume 83, Mean Corpuscular Hemoglobin 27.0, Mean Corpuscular Hemoglobin Concent 32.4, Red Cell Distribution Width 15.1H, Platelet Count 322, Mean Platelet Volume 5.5L, Neutrophils (%) (Auto) 62.5, Lymphocytes (%) (Auto) 20.4, Monocytes (%) (Auto) 12.1H, Eosinophils (%) (Auto) 4.2H, Basophils (%) (Auto) 0.9, Sodium Level 140, Potassium Level 3.2L, Chloride Level 104, Carbon Dioxide Level 30, Anion Gap 6, Blood Urea Nitrogen 7 , Creatinine 1.2, Estimat Glomerular Filtration Rate > 60, Glucose Level 116H, Calcium Level 8.6, Vancomycin Level Trough 13.3H Height (Feet): 6 Height (Inches): 0.00 Weight (Pounds): 190 General Appearance: WD/WN, no apparent distress EENT: PERRL/EOMI Neck: non-tender Cardiovascular: normal peripheral pulses, regular rhythm Abdomen: normal bowel sounds, non tender Extremities: other - R BKA 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
--- NOTE | 2018-12-17 11:50 | NUR ---
NURSE NOTES: Seen and examined by Dr. Mccrayr made aware patient noted ate 100 % of his meal and back to regular diet. Iv fluid can be taper off.
[2018-12-17 12:00] VITALS: BP 157/78
[2018-12-17 16:00] VITALS: BP 148/80
--- NOTE | 2018-12-17 19:05 | NUR ---
NURSE NOTES: Received report from Venus RN, pt. in bed awake, A/O x's4- able to make needs known, cardiac monitoring on, call light within easy reach, bed in lowest position, safety braked engaged, side rails up x's3, pt. appears to be sating well on room air no distress noted, pt. has Trujillo intact and draining to gravity, RT. AC 20G IV intact and patent, All needs attended to and comfort measures provided, safety measures continued, will continue with plan of care.
--- NOTE | 2018-12-17 19:21 | NUR ---
HAND-OFF: Report given to Rachelle Landry.
[2018-12-17 20:00] VITALS: BP 155/83
[2018-12-17] MEDS ORDERED: NS 275ml ONE (22:48)
[2018-12-17] MEDS ORDERED: 1/2 NS 1000ml IV ONE (22:48)
[2018-12-18] VITALS: BP 142/76
[2018-12-18] MEDS: Vancomycin 1.25gm Premix IVPB SCH (03:35)
[2018-12-18 04:00] VITALS: BP 152/83
[2018-12-18] MEDS: Piperacillin/Tazobactam 3.375 GM in NS 110 ML IVPB SCH (05:25)
[2018-12-18] MEDS: NovoLOG Insulin Flexpen SUBQ SCH ×2 (06:10→12:14)
[2018-12-18 06:34] LABS: BASOPHILS % (AUTO) 0.7 % (0.0-2.0); HEMATOCRIT 33.5 % (42.0-52.0); HEMOGLOBIN 10.7 G/DL (14.2-18.0); LYMPHOCYTES % (AUTO) 21.1 % (20.0-45.0); MEAN CORPUSCULAR VOLUME 84 FL (80-99); MONOCYTES % (AUTO) 11.6 % (1.0-10.0); NEUTROPHILS % (AUTO) 62.7 % (45.0-75.0); PLATELET COUNT 332 K/UL (150-450); RED CELL DISTRIBUTION WIDTH 15.1 % (11.6-14.8)
[2018-12-18 07:02] LABS: ANION GAP 6 mmol/L (5-15); BLOOD UREA NITROGEN 13 mg/dL (7-18); CALCIUM 8.7 MG/DL (8.5-10.1); CARBON DIOXIDE 29 MMOL/L (21-32); CHLORIDE 102 MMOL/L (98-107); CREATININE 1.4 MG/DL (0.55-1.30); POTASSIUM 3.2 MMOL/L (3.5-5.1); SODIUM 137 MMOL/L (136-145)
--- NOTE | 2018-12-18 07:07 | NUR ---
HAND-OFF: Report given to Chelsie ANGEL, pt. remains stable and no signs of distress noted.
--- NOTE | 2018-12-18 07:10 | NUR ---
NURSE NOTES: Received report from Karli ANGEL. Pt. in bed, awake, a/o x 4. No sign of distress. Denies pain at present. IV site at right AC #20g. in placed patent/intact. F/C in placed patent/intact draining yellow colored urine. Call light within reach. Will cont. to monitor.
--- NOTE | 2018-12-18 07:12 | Hematology/Onc Progress Note ---
Assessment/Plan Assessment/Plan ASSESSMENT AND PLAN # Anemia of iron deficiency --> Anemia workup has been ordered. ferritin 107, Iron 38, TIBC 167, Ionr sat 23 %. --> No evidence of hemolysis is noted, peripheral smear has been reviewed. --> Hgb goal >7. Transfuse prn. -->Can begin iron po --> Medications have been reviewed --> low threshold for gi evaluation in case has occult + --> bone marrow biopsy is not indicated given the other more likely causes # Sepsis w UTI secondary to chronic [place]. --> on abx, as per ID --> continue per ID recs # Abdominal Pain. --> CT abd: 2 cm right adrenal adenoma. Bilateral basilar pulmonary parenchymal atelectasis. Basilar groundglass opacities could be on the basis of atelectasis , edema, or infectious/inflammatory process # Rectal bleeding. GI is following, appreciate recs --> per gi prn #Type II NSTEMI likely due to demand ischemia, no chest pain per patient. --> telemetry monitoring --> check serial triops --> ASA --> Hold full dose anticoagulation for now due to possible GI bleed # Type 2 DM # Moderate protein calorie malnutrition # Stage II buttocks pressure ulcer --> Wound care The time note is entered does not reflect the time patient was examined. Greatly appreciate consultation. Subjective Allergies: Coded Allergies: No Known Allergies (Unverified , 12/15/18) Subjective 12/18: pt resting in bed, slight cough, has no complaints today. Objective Objective Current Medications Medications (Trade) Dose Ordered Sig/Thelma Route PRN Reason Start Time Stop Time Status Last Admin Dose Admin Acetaminophen (Tylenol) 650 mg Q4H PRN ORAL Mild Pain (Pain Scale 1-3) 12/15/18 15:30 01/14/19 15:29 Albuterol/ Ipratropium (Albuterol/ Ipratropium) 3 ml Q6H PRN HHN Shortness of Breath 12/15/18 15:30 12/20/18 15:29 Amlodipine Besylate (Norvasc) 5 mg DAILY ORAL 12/16/18 09:00 01/15/19 08:59 12/17/18 08:33 Aspirin (ASA) 81 mg DAILY ORAL 12/16/18 09:00 01/15/19 08:59 12/17/18 08:32 Atorvastatin Calcium (Lipitor) 20 mg DAILY ORAL 12/16/18 09:00 01/15/19 08:59 12/17/18 08:32 Dextrose (Dextrose 50%) 25 ml Q30M PRN IV Hypoglycemia 12/15/18 15:30 01/14/19 15:29 Dextrose (Dextrose 50%) 50 ml Q30M PRN IV Hypoglycemia 12/15/18 15:30 01/14/19 15:29 Docusate Sodium (Colace) 100 mg EVERY 12 HOURS ORAL 12/15/18 21:00 01/14/19 20:59 12/17/18 20:41 Heparin Sodium (Porcine) (Heparin 5000 units/ml) 5,000 units EVERY 12 HOURS SUBQ 12/15/18 21:00 01/14/19 20:59 12/17/18 20:42 Hydromorphone HCl (Dilaudid) 0.5 mg Q4H PRN IVP Moderate Pain (Pain Scale 4-6) 12/15/18 15:30 12/22/18 15:29 Hydromorphone HCl (Dilaudid) 1 mg Q4H PRN IVP Severe Pain (Pain Scale 7-10) 12/15/18 15:30 12/22/18 15:29 Insulin Aspart (NovoLOG) BEFORE MEALS AND HS SUBQ 12/15/18 21:00 01/14/19 20:59 12/18/18 06:10 Metoprolol Tartrate (Lopressor) 50 mg EVERY 12 HOURS ORAL 12/15/18 21:00 01/14/19 20:59 12/17/18 20:41 Ondansetron HCl (Zofran) 4 mg Q6H PRN IVP Nausea & Vomiting 12/15/18 15:30 01/14/19 15:29 Piperacillin Sod/ Tazobactam Sod 3.375 gm/Sodium Chloride 110 ml @ 27.5 mls/hr Q8HR IVPB 12/15/18 22:00 12/22/18 21:59 12/18/18 05:25 Vancomycin HCl (Vanco rx to dose) 1 ea DAILY PRN MISC Per rx protocol 12/15/18 22:45 01/14/19 22:44 Vancomycin HCl/ Dextrose 275 ml @ 183.333 mls/hr Q12H IVPB 12/17/18 03:30 12/22/18 03:29 12/18/18 03:35 Last 24 Hour Vital Signs Date Time Temp Pulse Resp B/P (MAP) Pulse Ox O2 Delivery O2 Flow Rate FiO2 12/18/18 04:00 Room Air 12/18/18 04:00 76 12/18/18 04:00 98.5 83 20 152/83 (106) 99 12/18/18 00:00 65 12/18/18 00:00 Room Air 12/18/18 00:00 98.1 78 20 142/76 (98) 99 12/17/18 20:41 72 155/83 12/17/18 20:00 74 12/17/18 20:00 Room Air 12/17/18 20:00 98.8 72 20 155/83 (107) 98 12/17/18 19:58 69 16 97 Room Air 12/17/18 16:00 Room Air 12/17/18 16:00 98.9 70 21 148/80 (102) 98 12/17/18 16:00 71 12/17/18 12:00 65 12/17/18 12:00 97.6 70 22 157/78 (104) 99 12/17/18 12:00 Room Air 12/17/18 09:36 72 16 98 Room Air 12/17/18 08:33 84 144/75 12/17/18 08:33 84 144/75 12/17/18 08:00 98.2 77 21 146/85 (105) 99 12/17/18 08:00 73 12/17/18 08:00 Room Air 12/17/18 04:00 99.3 84 20 157/73 (101) 97 12/17/18 04:00 Room Air 12/17/18 03:42 70 12/17/18 00:00 98.7 59 20 153/68 (96) 98 12/17/18 00:00 62 12/17/18 00:00 Room Air 12/16/18 22:02 66 18 98 Room Air 21 12/16/18 21:04 66 148/76 12/16/18 20:00 98.7 66 21 148/76 (100) 98 12/16/18 20:00 Room Air 12/16/18 19:31 66 6/8/19 16:00 99.1 68 22 150/63 (92) 97 12/16/18 16:00 68 12/16/18 16:00 Room Air 12/16/18 12:00 Room Air 12/16/18 12:00 98.3 64 24 159/75 (103) 97 12/16/18 12:00 66 12/16/18 10:22 97 18 98 Room Air 21 12/16/18 09:32 78 163/72 12/16/18 09:32 78 163/72 12/16/18 08:00 Room Air 12/16/18 08:00 98.9 78 26 163/72 (102) 98 12/16/18 08:00 67 Intake and Output 12/17/18 12/18/18 18:59 06:59 Intake Total 1785 ml 476.666 ml Output Total 1750 ml 475 ml Balance 35 ml 1.666 ml Intake Oral 1000 ml IV Total 785 ml 476.666 ml Output Urine Total 1750 ml 475 ml Labs Test 12/15/18 10:40 12/15/18 18:00 12/16/18 04:51 12/17/18 02:45 White Blood Count 11.4 K/UL (4.8-10.8) 8.8 K/UL (4.8-10.8) 8.7 K/UL (4.8-10.8) Red Blood Count 4.21 M/UL (4.70-6.10) 3.90 M/UL (4.70-6.10) 3.88 M/UL (4.70-6.10) Hemoglobin 11.3 G/DL (14.2-18.0) 10.6 G/DL (14.2-18.0) 10.5 G/DL (14.2-18.0) Hematocrit 35.5 % (42.0-52.0) 32.9 % (42.0-52.0) 32.3 % (42.0-52.0) Mean Corpuscular Volume 85 FL (80-99) 84 FL (80-99) 83 FL (80-99) Mean Corpuscular Hemoglobin 26.9 PG (27.0-31.0) 27.2 PG (27.0-31.0) 27.0 PG (27.0-31.0) Mean Corpuscular Hemoglobin Concent 31.8 G/DL (32.0-36.0) 32.4 G/DL (32.0-36.0) 32.4 G/DL (32.0-36.0) Red Cell Distribution Width 15.5 % (11.6-14.8) 15.5 % (11.6-14.8) 15.1 % (11.6-14.8) Platelet Count 375 K/UL (150-450) 331 K/UL (150-450) 322 K/UL (150-450) Mean Platelet Volume 6.1 FL (6.5-10.1) 6.6 FL (6.5-10.1) 5.5 FL (6.5-10.1) Neutrophils (%) (Auto) 78.1 % (45.0-75.0) 72.5 % (45.0-75.0) 62.5 % (45.0-75.0) Lymphocytes (%) (Auto) 11.2 % (20.0-45.0) 14.5 % (20.0-45.0) 20.4 % (20.0-45.0) Monocytes (%) (Auto) 7.8 % (1.0-10.0) 9.2 % (1.0-10.0) 12.1 % (1.0-10.0) Eosinophils (%) (Auto) 1.8 % (0.0-3.0) 3.1 % (0.0-3.0) 4.2 % (0.0-3.0) Basophils (%) (Auto) 1.0 % (0.0-2.0) 0.8 % (0.0-2.0) 0.9 % (0.0-2.0) Prothrombin Time 11.4 SEC (9.30-11.50) Prothromb Time International Ratio 1.1 (0.9-1.1) Activated Partial Thromboplast Time 31 SEC (23-33) Urine Color Pale yellow Urine Appearance Slightly cloudy Urine pH 6 (4.5-8.0) Urine Specific [place] 1.020 (1.005-1.035) Urine Protein 3+ (NEGATIVE) Urine Glucose (UA) Negative (NEGATIVE) Urine Ketones Negative (NEGATIVE) Urine Blood 4+ (NEGATIVE) Urine Nitrite Negative (NEGATIVE) Urine Bilirubin Negative (NEGATIVE) Urine Urobilinogen Normal MG/DL (0.0-1.0) Urine Leukocyte Esterase 3+ (NEGATIVE) Urine RBC 10-15 /HPF (0 - 0) Urine WBC 20-30 /HPF (0 - 0) Urine Squamous Epithelial Cells Occasional /LPF Urine Bacteria Moderate /HPF (NONE) Sodium Level 141 MMOL/L (136-145) 140 MMOL/L (136-145) 140 MMOL/L (136-145) Potassium Level 3.2 MMOL/L (3.5-5.1) 3.3 MMOL/L (3.5-5.1) 3.2 MMOL/L (3.5-5.1) Chloride Level 104 MMOL/L (98-107) 104 MMOL/L (98-107) 104 MMOL/L (98-107) Carbon Dioxide Level 27 MMOL/L (21-32) 28 MMOL/L (21-32) 30 MMOL/L (21-32) Anion Gap 10 mmol/L (5-15) 8 mmol/L (5-15) 6 mmol/L (5-15) Blood Urea Nitrogen 15 mg/dL (7-18) 10 mg/dL (7-18) 7 mg/dL (7-18) Creatinine 1.3 MG/DL (0.55-1.30) 1.1 MG/DL (0.55-1.30) 1.2 MG/DL (0.55-1.30) Estimat Glomerular Filtration Rate 54.6 mL/min (>60) > 60 mL/min (>60) > 60 mL/min (>60) Glucose Level 166 MG/DL (74-106) 158 MG/DL (74-106) 116 MG/DL (74-106) Lactic Acid Level 1.20 mmol/L (0.4-2.0) 0.90 mmol/L (0.4-2.0) Calcium Level 9.0 MG/DL (8.5-10.1) 8.8 MG/DL (8.5-10.1) 8.6 MG/DL (8.5-10.1) Total Bilirubin 0.4 MG/DL (0.2-1.0) Aspartate Amino Transf (AST/SGOT) 14 U/L (15-37) Alanine Aminotransferase (ALT/SGPT) 12 U/L (12-78) Alkaline Phosphatase 127 U/L (46-116) Troponin I 1.223 ng/mL (0.000-0.056) 1.201 ng/mL (0.000-0.056) Total Protein 8.2 G/DL (6.4-8.2) Albumin 2.6 G/DL (3.4-5.0) Globulin 5.6 g/dL Albumin/Globulin Ratio 0.5 (1.0-2.7) Lipase 70 U/L (73-393) Differential Total Cells Counted 100 Neutrophils % (Manual) 74 % (45-75) Lymphocytes % (Manual) 16 % (20-45) Monocytes % (Manual) 7 % (1-10) Eosinophils % (Manual) 3 % (0-3) Basophils % (Manual) 0 % (0-2) Band Neutrophils 0 % (0-8) Platelet Estimate Adequate Platelet Morphology Normal Anisocytosis 1+ Reticulocyte Count 1.0 % (0.5-2.0) Iron Level 38 ug/dL (50-175) Total Iron Binding Capacity 167 ug/dL (250-450) Percent Iron Saturation 23 % (15-50) Unsaturated Iron Binding 129 ug/dL (112-346) Ferritin 107 NG/ML (8-388) Vitamin B12 Level 1286 PG/ML (193-986) Folate 34.4 NG/ML (8.6-58.9) Thyroid Stimulating Hormone (TSH) 3.681 uiU/mL (0.358-3.740) Vancomycin Level Trough 13.3 ug/mL (5.0-12.0) Test 12/18/18 04:30 White Blood Count 9.0 K/UL (4.8-10.8) Red Blood Count 4.00 M/UL (4.70-6.10) Hemoglobin 10.7 G/DL (14.2-18.0) Hematocrit 33.5 % (42.0-52.0) Mean Corpuscular Volume 84 FL (80-99) Mean Corpuscular Hemoglobin 26.8 PG (27.0-31.0) Mean Corpuscular Hemoglobin Concent 32.0 G/DL (32.0-36.0) Red Cell Distribution Width 15.1 % (11.6-14.8) Platelet Count 332 K/UL (150-450) Mean Platelet Volume 6.1 FL (6.5-10.1) Neutrophils (%) (Auto) 62.7 % (45.0-75.0) Lymphocytes (%) (Auto) 21.1 % (20.0-45.0) Monocytes (%) (Auto) 11.6 % (1.0-10.0) Eosinophils (%) (Auto) 4.0 % (0.0-3.0) Basophils (%) (Auto) 0.7 % (0.0-2.0) Sodium Level 137 MMOL/L (136-145) Potassium Level 3.2 MMOL/L (3.5-5.1) Chloride Level 102 MMOL/L (98-107) Carbon Dioxide Level 29 MMOL/L (21-32) Anion Gap 6 mmol/L (5-15) Blood Urea Nitrogen 13 mg/dL (7-18) Creatinine 1.4 MG/DL (0.55-1.30) Estimat Glomerular Filtration Rate > 60 mL/min (>60) Glucose Level 158 MG/DL (74-106) Calcium Level 8.7 MG/DL (8.5-10.1) Height (Feet): 6 Height (Inches): 0.00 Weight (Pounds): 190 Objective Physical Exam General Appearance: no apparent distress, alert HEENT: atraumatic, anicteric Neck: normal alignment, supple Respiratory/Chest: lungs clear, normal breath sounds, no respiratory distress Cardiovascular/Chest: normal rate, regular rhythm Abdomen: no mass, tender, other - Firm Extremities: R DONNA : + Margaret Beltran NP Dec 18, 2018 07:12
[2018-12-18 08:00] VITALS: BP 156/76
[2018-12-18] MEDS: Atorvastatin 20mg tab ORAL SCH (08:41)
[2018-12-18] MEDS: Aspirin Baby 81mg ORAL SCH (08:41)
[2018-12-18] MEDS: Docusate 100mg cap ORAL SCH (08:41)
[2018-12-18] MEDS: Metoprolol Tartrate 50mg tab ORAL SCH (08:41)
[2018-12-18] MEDS: Heparin 5000 units/ml inj SUBQ SCH (08:44)
[2018-12-18] MEDS ORDERED: CEFUROXIME250 MG PO (10:19)
[2018-12-18] MEDS ORDERED: ASPIRIN81 MG ORAL (10:19)
[2018-12-18] MEDS ORDERED: LIPITOR20 MG ORAL (10:19)
[2018-12-18] MEDS ORDERED: CEFUROXIME500 MG PO (10:28)
--- NOTE | 2018-12-18 10:28 | NUR ---
*-* INSURANCE *-* ALL CLINICALS AND REVIEWS HAVE BEEN FAXED TO: [employer] EM:HERNAN P:[phone] F:[phone]
--- NOTE | 2018-12-18 10:28 | General Progress Note ---
Assessment/Plan Problem List: (1) HTN (hypertension) ICD Codes: I10 - Essential (primary) hypertension SNOMED: 31633180 (2) DM (3) Proctitis ICD Codes: K62.89 - Other specified diseases of anus and rectum SNOMED: 1633713 (4) Anemia ICD Codes: D64.9 - Anemia, unspecified SNOMED: 660827612 (5) PVD (peripheral vascular disease) ICD Codes: I73.9 - Peripheral vascular disease, unspecified SNOMED: 393898209 (6) Decubitus ulcer ICD Codes: L89.90 - Pressure ulcer of unspecified site, unspecified stage SNOMED: 309809950 (7) GI bleeding ICD Codes: K92.2 - Gastrointestinal hemorrhage, unspecified SNOMED: 12851915 (8) Sepsis ICD Codes: A41.9 - Sepsis, unspecified organism SNOMED: 53084072 (9) UTI (urinary tract infection) ICD Codes: N39.0 - Urinary tract infection, site not specified SNOMED: 48919161 (10) ACS (acute coronary syndrome) ICD Codes: I24.9 - Acute ischemic heart disease, unspecified SNOMED: 372103266 Status: stable Assessment/Plan: fu stool ob pending clearance from cardiology for GI procedures pending stress test bowel regimen fu labs Subjective Allergies: Coded Allergies: No Known Allergies (Unverified , 12/15/18) Objective Last 24 Hour Vital Signs Date Time Temp Pulse Resp B/P (MAP) Pulse Ox O2 Delivery O2 Flow Rate FiO2 12/18/18 08:41 76 152/83 12/18/18 08:41 76 152/83 12/18/18 08:00 98.6 70 20 156/76 (102) 99 12/18/18 08:00 Room Air 12/18/18 07:40 75 12/18/18 04:00 Room Air 12/18/18 04:00 76 12/18/18 04:00 98.5 83 20 152/83 (106) 99 12/18/18 00:00 65 12/18/18 00:00 Room Air 12/18/18 00:00 98.1 78 20 142/76 (98) 99 12/17/18 20:41 72 155/83 12/17/18 20:00 74 12/17/18 20:00 Room Air 12/17/18 20:00 98.8 72 20 155/83 (107) 98 12/17/18 19:58 69 16 97 Room Air 21 12/17/18 16:00 Room Air 12/17/18 16:00 98.9 70 21 148/80 (102) 98 12/17/18 16:00 71 12/17/18 12:00 65 12/17/18 12:00 97.6 70 22 157/78 (104) 99 12/17/18 12:00 Room Air Intake and Output 12/17/18 12/18/18 18:59 06:59 Intake Total 1785 ml 476.666 ml Output Total 1750 ml 475 ml Balance 35 ml 1.666 ml Intake Oral 1000 ml IV Total 785 ml 476.666 ml Output Urine Total 1750 ml 475 ml Laboratory Tests 12/18/18 04:30: White Blood Count 9.0, Red Blood Count 4.00L, Hemoglobin 10.7L, Hematocrit 33.5L , Mean Corpuscular Volume 84, Mean Corpuscular Hemoglobin 26.8L, Mean Corpuscular Hemoglobin Concent 32.0, Red Cell Distribution Width 15.1H, Platelet Count 332, Mean Platelet Volume 6.1L, Neutrophils (%) (Auto) 62.7, Lymphocytes (%) (Auto) 21.1, Monocytes (%) (Auto) 11.6H, Eosinophils (%) (Auto) 4.0H, Basophils (%) (Auto) 0.7, Sodium Level 137, Potassium Level 3.2L, Chloride Level 102, Carbon Dioxide Level 29, Anion Gap 6, Blood Urea Nitrogen 13 , Creatinine 1.4H, Estimat Glomerular Filtration Rate > 60, Glucose Level 158H, Calcium Level 8.7 Height (Feet): 6 Height (Inches): 0.00 Weight (Pounds): 190 General Appearance: no apparent distress EENT: normal ENT inspection Neck: supple Cardiovascular: normal rate Respiratory/Chest: decreased breath sounds Abdomen: normal bowel sounds, non tender, soft Extremities: non-tender Bennie Rm MD Dec 18, 2018 10:28
[2018-12-18] MEDS ORDERED: Lactulose 20gm/30ml UDC ORAL SCH (10:30)
--- NOTE | 2018-12-18 10:35 | Discharge Summary ---
Discharge Summary Hospital Course Date of Admission Dec 15, 2018 at 12:56 Date of Discharge 12/18/18 Admitting Diagnosis GI BLEED HPI Luis Manuel is a 68 year old male who was admitted on Dec 15, 2018 at 12:56 for Gastrointestinal Bleed Consultations GI,ID,Cardiology Hospital Course 68 year old man with HTN, DM, rigth BKA, stage 2 pressure ulcer, chronic indwelling mckeon who presents from group home with abdominal distension. Found to have fever, abdominal pain and possible rectal bleeding. Also with NSTEMI type 2. Treated with broad spectrum IV antibiotics, urine culture grew lerner-sensitive Enterobacter. Seen by GI, no endoscopic workup recommended. Stable H&H. Will continue with Ceftin for 7 more days per ID recs. Also started on ASA, Lipitor. Discharge Instructions: Patient needs repeat BMP this Tuesday..Sign out given to SNF MD #Sepsis #UTI secondary to chronic Mckeon #Pyelonephritis #Abdominal Pain #?rectal bleeding -continue Ceftin as outpatient -No endoscopic workup as inpatient per GI #Type II NSTEMI likely due to demand ischemia, no chest pain per patient #HTN -continue ASA and Lipitor as outpatient #Type 2 DM #Moderate protein calorie malnutrition #Stage II buttocks pressure ulcer I spent 35 minutes in preparing discharge Discharge Medications New Medications: Cefuroxime Axetil* (Cefuroxime*) 500 Mg Tablet 500 MG PO Q12HR PRN for 7 Days, #14 TAB Aspirin* (Aspirin*) 81 Mg Tab.chew 81 MG ORAL DAILY for 30 Days, #30 TAB Atorvastatin Calcium* (Lipitor*) 20 Mg Tablet 20 MG ORAL DAILY for 30 Days, #30 TAB Continued Medications: Amlodipine Besylate* (Amlodipine Besylate*) 5 Mg Tablet 5 MG ORAL DAILY, TAB (This prescription has been renewed) Clonidine Hcl* (Catapres*) 0.1 Mg Tablet 0.1 MG ORAL BID, TAB (This prescription has been renewed) Diphenhydramine Hcl* (Diphenhydramine Hcl*) 25 Mg Capsule 25 MG ORAL Q4HR PRN for Itching, #30 CAP 0 Refills (This prescription has been renewed) Ferrous Sulfate* (Ferrous Sulfate*) 325 Mg Tablet 325 MG ORAL DAILY, #30 TAB 0 Refills (This prescription has been renewed) Insulin Lispro (Humalog) 100 Unit/1 Ml Cartridge 0 SUBQ, #1 UNITS 0 Refills (This prescription has been renewed) Metoprolol Tartrate* (Metoprolol Tartrate*) 50 Mg Tablet 50 MG ORAL EVERY 12 HOURS, TAB (This prescription has been renewed) Multivit with Minerals No.55 (Centrum Flavor Burst Adult) 1 Each Tab.chew 1 EACH PO DAILY, TAB (This prescription has been renewed) Discharge Condition Upon Discharge: stable Discharge Disposition Patient was discharged to SNF Discharge Diagnoses: (1) UTI (urinary tract infection) (2) ACS (acute coronary syndrome) (3) Sepsis (4) GI bleeding (5) Decubitus ulcer Blaine Basurto MD Dec 18, 2018 10:34
--- NOTE | 2018-12-18 11:57 | NUR ---
DISCHARGE PLANNING: NOTE CLINICALS FAXED TO [facility] BED OBTAINED >>> ROOM [address] TRANSPORTATION AUTH OBTAINED FOR TRANSFER THROUGH [facility] AUTH#[id number] AWAITING SNF AUTH THROUGH [facility] CLINICALS FAXED [phone]
[2018-12-18 12:00] VITALS: BP 145/75
--- NOTE | 2018-12-18 12:49 | NUR ---
DISCHARGE DISPOSITION: PLEASE READ PATIENT TO BE DISCHARGED TO [facility] [address] [facility] ROOM [address] T: [phone]>>> CALL SUP FOR REPORT [facility] ETA 1500 AUTH [id number] SKILLED SNF AUTH [phone] KAYLIE (MARY JO/ROSIO) NOTIFIED OF DC TRANSFER REPORT PROVIDED TO NURSING Addendum: 12/18/18 at 1333 by Susanna Urena CM UNABLE TO NOTIFY DPOA >>> NO ANSWER. NO VM
--- NOTE | 2018-12-18 13:45 | NUR ---
NURSE NOTES: Called [facility] and gave report to Faustino SPENCER.
--- NOTE | 2018-12-18 14:01 | Cardiac Electrophysiology PN ---
Assessment/Plan Assessment/Plan Elevated troponin No CP -Aspirin, Metoprolol and Lipitor -Nitro prn -Stress test when pt agrees -Echocardiogram Nl EF Hypertension -Norvasc -Metoprolol DM -continue glucose control Proctitis/UTI -Cultures -Broad spectrum Abx DW RN Subjective Subjective No CP or SOB. Awaiting DC today Objective Last 24 Hour Vital Signs Date Time Temp Pulse Resp B/P (MAP) Pulse Ox O2 Delivery O2 Flow Rate FiO2 12/18/18 12:00 96.8 66 18 145/75 (98) 99 12/18/18 12:00 Room Air 12/18/18 11:45 66 20 99 Room Air 21 12/18/18 08:41 76 152/83 12/18/18 08:41 76 152/83 12/18/18 08:00 98.6 70 20 156/76 (102) 99 12/18/18 08:00 Room Air 12/18/18 07:40 75 12/18/18 04:00 Room Air 12/18/18 04:00 76 12/18/18 04:00 98.5 83 20 152/83 (106) 99 12/18/18 00:00 65 12/18/18 00:00 Room Air 12/18/18 00:00 98.1 78 20 142/76 (98) 99 12/17/18 20:41 72 155/83 12/17/18 20:00 74 12/17/18 20:00 Room Air 12/17/18 20:00 98.8 72 20 155/83 (107) 98 12/17/18 19:58 69 16 97 Room Air 21 12/17/18 16:00 Room Air 12/17/18 16:00 98.9 70 21 148/80 (102) 98 12/17/18 16:00 71 Intake and Output 12/17/18 12/18/18 19:00 07:00 Intake Total 1685 ml 476.666 ml Output Total 1750 ml 475 ml Balance -65 ml 1.666 ml Intake Oral 1000 ml IV Total 685 ml 476.666 ml Output Urine Total 1750 ml 475 ml Laboratory Tests Test 12/18/18 04:30 White Blood Count 9.0 K/UL (4.8-10.8) Red Blood Count 4.00 M/UL (4.70-6.10) L Hemoglobin 10.7 G/DL (14.2-18.0) L Hematocrit 33.5 % (42.0-52.0) L Mean Corpuscular Volume 84 FL (80-99) Mean Corpuscular Hemoglobin 26.8 PG (27.0-31.0) L Mean Corpuscular Hemoglobin Concent 32.0 G/DL (32.0-36.0) Red Cell Distribution Width 15.1 % (11.6-14.8) H Platelet Count 332 K/UL (150-450) Mean Platelet Volume 6.1 FL (6.5-10.1) L Neutrophils (%) (Auto) 62.7 % (45.0-75.0) Lymphocytes (%) (Auto) 21.1 % (20.0-45.0) Monocytes (%) (Auto) 11.6 % (1.0-10.0) H Eosinophils (%) (Auto) 4.0 % (0.0-3.0) H Basophils (%) (Auto) 0.7 % (0.0-2.0) Sodium Level 137 MMOL/L (136-145) Potassium Level 3.2 MMOL/L (3.5-5.1) L Chloride Level 102 MMOL/L (98-107) Carbon Dioxide Level 29 MMOL/L (21-32) Anion Gap 6 mmol/L (5-15) Blood Urea Nitrogen 13 mg/dL (7-18) Creatinine 1.4 MG/DL (0.55-1.30) H Estimat Glomerular Filtration Rate > 60 mL/min (>60) Glucose Level 158 MG/DL (74-106) H Calcium Level 8.7 MG/DL (8.5-10.1) Microbiology Date/Time Source Procedure Growth Status 12/15/18 23:13 Indwelling Cath Urine Culture - Preliminary NO GROWTH AFTER 24 HOURS Resulted Objective HEENT: No JVD Rhythm: NSR Cardiovascular: normal peripheral pulses, normal rate Respiratory/Chest: chest wall non-tender, lungs clear, normal breath sounds, no respiratory distress Abdomen: normal bowel sounds, non tender, soft, no organomegaly Extremities: S/P R BKA 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
[2018-12-18] MEDS ORDERED: CIPRO500 MG/51 PO (14:30)
--- NOTE | 2018-12-18 14:33 | Infectious Diseases Prog Note ---
Assessment/Plan Assessment/Plan ASSESSMENT AND PLAN: 1. enterobacter uti/pyelonephritis, sepsis, leukocytosis, fevers, atx - zosyn and vancomycin - can transition to oral ciprofloxacin or levofloxacin x 1 week - d/w Dr. Dhillon 2. Chronic Mckeon. 3. Anemia. 4. Diabetes. 5. Hypertension. 6. Blood sugar and blood pressure treatment per primary. 7. Right BKA. 8. Left hip fracture. 9. Skin care protocol. History of stage II buttocks decubitus. 10. Continue treatment per primary consultants. 11. No allergies. 12. Social history is negative. 13. Family history is noncontributory. 14. MAR was noted. 15. Case was discussed with RN. 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 Subjective Constitutional: Denies: fever HEENT: Denies: congestion Respiratory: Denies: shortness of breath Cardiovascular: Denies: chest pain Gastrointestinal/Abdominal: Denies: nausea, vomiting, diarrhea Genitourinary: Reports: other - + mckeon - urine clearer Neurologic: Denies: headache Psychiatric: Denies: depression Skin: Denies: rash Hematologic: Denies: bleeding Musculoskeletal: Denies: pain Allergies: Coded Allergies: No Known Allergies (Unverified , 12/15/18) Objective Vital Signs Last 24 Hour Vital Signs Date Time Temp Pulse Resp B/P (MAP) Pulse Ox O2 Delivery O2 Flow Rate FiO2 12/18/18 12:00 96.8 66 18 145/75 (98) 99 12/18/18 12:00 Room Air 12/18/18 11:45 66 20 99 Room Air 21 12/18/18 08:41 76 152/83 12/18/18 08:41 76 152/83 12/18/18 08:00 98.6 70 20 156/76 (102) 99 12/18/18 08:00 Room Air 12/18/18 07:40 75 12/18/18 04:00 Room Air 12/18/18 04:00 76 12/18/18 04:00 98.5 83 20 152/83 (106) 99 12/18/18 00:00 65 12/18/18 00:00 Room Air 12/18/18 00:00 98.1 78 20 142/76 (98) 99 12/17/18 20:41 72 155/83 12/17/18 20:00 74 12/17/18 20:00 Room Air 12/17/18 20:00 98.8 72 20 155/83 (107) 98 12/17/18 19:58 69 16 97 Room Air 21 12/17/18 16:00 Room Air 12/17/18 16:00 98.9 70 21 148/80 (102) 98 12/17/18 16:00 71 Height (Feet): 6 Height (Inches): 0.00 Weight (Pounds): 190 General Appearance: no acute distress HEENT: normocephalic, atraumatic, anicteric, mucous membranes moist Respiratory/Chest: lungs clear, normal breath sounds, no respiratory distress Cardiovascular: normal rate, regular rhythm, no gallop/murmur Abdomen: normal bowel sounds, soft, non tender, no organomegaly, non distended Genitourinary: other - + mckeon - urine clearer Extremities: no cyanosis Skin: no rash Neurologic/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 Mildly increased interstitial markings, unchanged. Pleural space: Unremarkable. The costophrenic angles are sharp. No visible pneumothorax. Heart: Unremarkable. No cardiomegaly. Mediastinum: Unremarkable. Bones/joints: Unremarkable. Vasculature: Atherosclerotic calcifications are noted within the aortic arch. Tubes, lines and devices: Telemetry leads overlie the thorax. IMPRESSION: No significant interval change compared to the prior chest x-ray. Microbiology Date/Time Source Procedure Growth Status 12/15/18 10:40 Blood Blood Culture - Preliminary NO GROWTH AFTER 48 HOURS Resulted 12/15/18 13:00 Nasal Nares MRSA Culture - Final Staphylococcus Aureus - Mrsa Complete 12/15/18 23:13 Indwelling Cath Urine Culture - Preliminary NO GROWTH AFTER 24 HOURS Resulted 12/15/18 13:00 Rectum - Final NO CARBAPENEM-RESISTANT ENTEROBACTERI... Complete Microbiology Date/Time Source Procedure Growth Status 12/15/18 23:13 Indwelling Cath Urine Culture - Preliminary NO GROWTH AFTER 24 HOURS Resulted Laboratory Tests Test 12/18/18 04:30 White Blood Count 9.0 K/UL (4.8-10.8) Red Blood Count 4.00 M/UL (4.70-6.10) L Hemoglobin 10.7 G/DL (14.2-18.0) L Hematocrit 33.5 % (42.0-52.0) L Mean Corpuscular Volume 84 FL (80-99) Mean Corpuscular Hemoglobin 26.8 PG (27.0-31.0) L Mean Corpuscular Hemoglobin Concent 32.0 G/DL (32.0-36.0) Red Cell Distribution Width 15.1 % (11.6-14.8) H Platelet Count 332 K/UL (150-450) Mean Platelet Volume 6.1 FL (6.5-10.1) L Neutrophils (%) (Auto) 62.7 % (45.0-75.0) Lymphocytes (%) (Auto) 21.1 % (20.0-45.0) Monocytes (%) (Auto) 11.6 % (1.0-10.0) H Eosinophils (%) (Auto) 4.0 % (0.0-3.0) H Basophils (%) (Auto) 0.7 % (0.0-2.0) Sodium Level 137 MMOL/L (136-145) Potassium Level 3.2 MMOL/L (3.5-5.1) L Chloride Level 102 MMOL/L (98-107) Carbon Dioxide Level 29 MMOL/L (21-32) Anion Gap 6 mmol/L (5-15) Blood Urea Nitrogen 13 mg/dL (7-18) Creatinine 1.4 MG/DL (0.55-1.30) H Estimat Glomerular Filtration Rate > 60 mL/min (>60) Glucose Level 158 MG/DL (74-106) H Calcium Level 8.7 MG/DL (8.5-10.1) Current Medications Medications (Trade) Dose Ordered Sig/Thelma Route PRN Reason Start Time Stop Time Status Last Admin Dose Admin Acetaminophen (Tylenol) 650 mg Q4H PRN ORAL Mild Pain (Pain Scale 1-3) 12/15/18 15:30 01/14/19 15:29 Albuterol/ Ipratropium (Albuterol/ Ipratropium) 3 ml Q6H PRN HHN Shortness of Breath 12/15/18 15:30 12/20/18 15:29 Amlodipine Besylate (Norvasc) 5 mg DAILY ORAL 12/16/18 09:00 01/15/19 08:59 12/18/18 08:41 Aspirin (ASA) 81 mg DAILY ORAL 12/16/18 09:00 01/15/19 08:59 12/18/18 08:41 Atorvastatin Calcium (Lipitor) 20 mg DAILY ORAL 12/16/18 09:00 01/15/19 08:59 12/18/18 08:41 Dextrose (Dextrose 50%) 25 ml Q30M PRN IV Hypoglycemia 12/15/18 15:30 01/14/19 15:29 Dextrose (Dextrose 50%) 50 ml Q30M PRN IV Hypoglycemia 12/15/18 15:30 01/14/19 15:29 Docusate Sodium (Colace) 100 mg EVERY 12 HOURS ORAL 12/15/18 21:00 01/14/19 20:59 12/18/18 08:41 Heparin Sodium (Porcine) (Heparin 5000 units/ml) 5,000 units EVERY 12 HOURS SUBQ 12/15/18 21:00 01/14/19 20:59 12/18/18 08:44 Hydromorphone HCl (Dilaudid) 0.5 mg Q4H PRN IVP Moderate Pain (Pain Scale 4-6) 12/15/18 15:30 12/22/18 15:29 Hydromorphone HCl (Dilaudid) 1 mg Q4H PRN IVP Severe Pain (Pain Scale 7-10) 12/15/18 15:30 12/22/18 15:29 Insulin Aspart (NovoLOG) BEFORE MEALS AND HS SUBQ 12/15/18 21:00 01/14/19 20:59 12/18/18 12:14 Metoprolol Tartrate (Lopressor) 50 mg EVERY 12 HOURS ORAL 12/15/18 21:00 01/14/19 20:59 12/18/18 08:41 Ondansetron HCl (Zofran) 4 mg Q6H PRN IVP Nausea & Vomiting 12/15/18 15:30 01/14/19 15:29 Piperacillin Sod/ Tazobactam Sod 3.375 gm/Sodium Chloride 110 ml @ 27.5 mls/hr Q8HR IVPB 12/15/18 22:00 12/22/18 21:59 12/18/18 05:25 Polyethylene Glycol (Miralax) 17 gm BEDTIME ORAL 12/18/18 21:00 01/17/19 20:59 Vancomycin HCl (Vanco rx to dose) 1 ea DAILY PRN MISC Per rx protocol 12/15/18 22:45 01/14/19 22:44 Vancomycin HCl/ Dextrose 275 ml @ 183.333 mls/hr Q12H IVPB 12/17/18 03:30 12/22/18 03:29 12/18/18 03:35 Mabel Huertas MD Dec 18, 2018 14:33
[2018-12-18] MEDS ORDERED: NS 275ml ONE (15:29)
--- NOTE | 2018-12-18 15:30 | NUR ---
Discharge: Patient is being discharged to [facility] from medical care. Awake, alert and oriented x4. After care instructions were given. Patient verbalized understanding of after care instructions upon discharge. All medical devices such as IV, equipment monitor phototypesetting and ID band were removed. Patient wheeled out with all personal belongings. Pt. remain stable.
[2018-12-18] MEDS ORDERED: Miralax 17gm pkt ORAL SCH (21:00)
--- NOTE | 2018-12-19 14:00 | NUR ---
*-* INSURANCE *-* DISCHARGE SUMMARY HAS BEEN FAXED TO: [employer] EM:HERNAN P:[phone] F:[phone]
--- NOTE | 2018-12-19 14:26 | Cardiology Report ---
APPROVED REPORT EXAM: Two-dimensional and M-mode echocardiogram with Doppler and color Doppler. INDICATION Left Ventricular Function M-Mode DIMENSIONS IVSd1.3 (0.7-1.1cm)Left Atrium (MM)4.8 (1.6-4.0cm) LVDd4.2 (3.5-5.6cm)Aortic Root2.9 (2.0-3.7cm) PWd1.4 (0.7-1.1cm)Aortic Cusp Exc.1.8 (1.5-2.0cm) LVDs3.0 (2.5-4.0cm) PWs1.5 cm Technically difficult study due to poor acoustic windows. Study quality precludes accurate assessment of regional wall motion. Normal left ventricular chamber size, systolic function and wall motion to extent visualized. Left ventricular ejection fraction estimated to be 55 %. Mild left ventricular hypertrophy. No evidence of pericardial effusion. Mild left atrial enlargement. Right cardiac chamber sizes are within normal limits. Aortic valve calcification with decreased cusp excursion c/w aortic stenosis. Mildly thickened mitral valve leaflets with normal excursion. Mild mitral annulus and aortic root calcification. Pulmonic valve not well visualized. Normal tricuspid valve structure. IVC is normal in size with physiological collapse. A color flow and spectral Doppler study was performed and revealed: Trace aortic regurgitation. Peak aortic valve gradient of 17 mmHg and a mean of 7 mmHg. Aortic valve area 1.6 cm2 calculated by continuity equation. Mild mitral regurgitation. Mitral inflow velocities indicates possible pseudo normalization pattern implying significant left ventricular diastolic dysfunction (Grade II). Trace tricuspid regurgitation. Tricuspid systolic velocities suggests peak right ventricular systolic pressure of 12 mmHg. Trace pulmonic regurgitation present.
--- NOTE | 2018-12-19 15:11 | Cardiology Report ---
APPROVED REPORT EKG Measurement Heart [id number] Normal sinus rhythm Left anterior fascicular block T wave abnormality, consider anterolateral ischemia Prolonged QT Abnormal ECG
== END 2018-12-18 15:30 | DRG 698 ==
LOC: EDBD 10:34 → EMR 11:01 → EDBEDREQSVC 11:40 → EDBEDREQ 11:40 → EDBEDREQSVC 12:47 → EDBEDREQ 12:47 → 2W 12:56 → EDBEDREQ 13:16 → EDBEDREQSVC 13:16 → EDBEDREQ 16:19 → 2W 12-16 18:35 → 2E 12-17 15:01 → 2W 12-17 16:48
DX: T83.511A Infection and inflammatory reaction due to indwelling urethral catheter, initial encounter (principal); A41.9 Sepsis, unspecified organism; J18.9 Pneumonia, unspecified organism; I21.A1 Myocardial infarction type 2; N10 Acute pyelonephritis; E44.0 Moderate protein-calorie malnutrition; K62.5 Hemorrhage of anus and rectum; B96.89 Other specified bacterial agents as the cause of diseases classified elsewhere; Z68.25 Body mass index [BMI] 25.0-25.9, adult; L89.302 Pressure ulcer of unspecified buttock, stage 2; E11.9 Type 2 diabetes mellitus without complications; Z89.511 Acquired absence of right leg below knee; D63.8 Anemia in other chronic diseases classified elsewhere; Z79.82 Long term (current) use of aspirin; Z79.4 Long term (current) use of insulin; K62.89 Other specified diseases of anus and rectum; I73.9 Peripheral vascular disease, unspecified
CPT/HCPCS: 36415; 71045; 74176; 80048; 80053; 80202; 81003; 82607; 82728; 82746; 82962; 83540; 83550; 83605; 83690; 84443; 84484; 85007; 85025; 85044; 85060; 85610; 85730; 87040; 87081; 87086; 87181; 93005; 93306; 94664; 96361; 96365; 96367; 96368; 99291; J1815; J8499